=== PATIENT | female | born 1940 | race Caucasian/White ===

== ENCOUNTER → 2016-07-12 | Outpatient (CLI) | payer MEDICARE, OTHER ==
--- NOTE | 2016-07-12 11:20 | MM ---
Reason for exam: follow-up at short interval from prior study. Last mammogram was performed 7 months ago. History: Patient is postmenopausal and history of other cancer. Family history of breast cancer in paternal aunt. Benign MG stereo VAD BX RT of the right breast, January 03, 2016. Took estrogen for 3 years beginning at age 58. Physical Findings: Nurse did not find any significant physical abnormalities on exam. MG 3D Diag Mammo W/Cad RT CC and MLO view(s) were taken of the right breast. Prior study comparison: December 19, 2015, right breast MG 3d work up w/cad RT. December 01, 2015, bilateral MG 3d screening mammo w/cad. The breast tissue is heterogeneously dense. This may lower the sensitivity of mammography. There is chronic nodularity in the right breast. These results were verbally communicated with the patient and result sheet given to the patient on 07/12/16. ASSESSMENT: Benign, BI-RAD 2 RECOMMENDATION: Return to routine screening mammogram schedule for both breasts. Back on schedule for November 2016.
== END | disposition home or self-care (01) ==
LOC: RADMAMWWP 09:55
PROVIDERS: ATTEND Surgery
DX: R92.8 Other abnormal and inconclusive findings on diagnostic imaging of breast (principal)
CPT/HCPCS: G0206; G0279

== ENCOUNTER → 2017-08-14 | Outpatient (CLI) | payer MEDICARE, OTHER ==
--- NOTE | 2017-08-18 07:53 | MM ---
Reason for exam: screening (asymptomatic). Last mammogram was performed 1 year and 1 month ago. History: Patient is postmenopausal and history of other cancer. Family history of breast cancer in paternal aunt. Benign MG stereo VAD BX RT of the right breast, January 03, 2016. Took estrogen for 3 years beginning at age 58. Physical Findings: A clinical breast exam by your physician is recommended on an annual basis and results should be correlated with mammographic findings. MG 3D Screening Mammo W/Cad Bilateral CC, MLO, and XCCL view(s) were taken. Prior study comparison: July 12, 2016, right breast MG 3d diag mammo w/cad RT. December 19, 2015, right breast MG 3d work up w/cad RT. There are scattered fibroglandular densities. A new group of round calcifications lateral left breast are typically benign. Some new circumscribed less than 5mm nodularity in the left breast. ASSESSMENT: Probably benign, BI-RAD 3 RECOMMENDATION: Follow-up diagnostic mammogram of the left breast in 6 months.
== END | disposition home or self-care (01) ==
LOC: RADMAMWWP 09:37
PROVIDERS: ATTEND Family Medicine
DX: Z12.31 Encounter for screening mammogram for malignant neoplasm of breast (principal)
CPT/HCPCS: 77063; 77067

== ENCOUNTER → 2018-01-02 | Outpatient (CLI) | payer MEDICARE, OTHER ==
--- NOTE | 2018-01-02 11:44 | XR ---
EXAMINATION TYPE: XR knee complete RT DATE OF EXAM: 01/02/2018 CLINICAL HISTORY: pain TECHNIQUE: Three views of the right knee are obtained. COMPARISON: None. FINDINGS: There is no acute fracture/dislocation. The tri-compartment joint spaces appear moderatel y narrowed. Small suprapatellar joint effusion noted. The overlying soft tissue appears unremarkable. IMPRESSION: There is no acute fracture or dislocation.ICD 10 NO FRACTURE, INITIAL EVALUATION
== END | disposition home or self-care (01) ==
LOC: RADXRYALE 11:12
PROVIDERS: ATTEND Family Medicine
DX: M25.561 Pain in right knee (principal)

== ENCOUNTER 2018-03-23 16:42 | Inpatient (IN) | payer MEDICARE, OTHER ==
[2018-03-23] MEDS ORDERED: SODIUM CHLORIDE 0.9% 1,000 ML IV STA ×2 (17:13)
[2018-03-23] MEDS ORDERED: IBUPROFEN 800 MG TAB PO STA (17:52)
[2018-03-23] MEDS ORDERED: ACETAMINOPHEN TAB 500 MG TAB PO STA (17:52)
[2018-03-23 17:58] LABS: Basophils # (A) 0.1 k/uL (0-0.2); Basophils % (A) 1 %; Eosinophils % (A) 0 %; HCT 39.7 % (34.0-46.0); HGB 13.6 gm/dL (11.4-16.0); Lymphocytes # (A) 0.9 k/uL (1.0-4.8); Lymphocytes % (A) 8 %; MCH 31.3 pg (25.0-35.0); MCHC 34.2 g/dL (31.0-37.0); MCV 91.3 fL (80.0-100.0); Mean Platelet Volume 7.8; Monocytes # (A) 0.6 k/uL (0-1.0); Monocytes % (A) 6 %; Neutrophils # (A) 8.9 k/uL (1.3-7.7); Neutrophils % (A) 84 %; Platelet Count 197 k/uL (150-450); RBC 4.34 m/uL (3.80-5.40); WBC 10.6 k/uL (3.8-10.6)
[2018-03-23 18:04] LABS: Albumin 4.1 g/dL (3.5-5.0); Magnesium 2.1 mg/dL (1.6-2.3); Phosphorus 3.2 mg/dL (2.5-4.5); Total Bilirubin 1.2 mg/dL (0.2-1.3); Total Protein 7.5 g/dL (6.3-8.2)
[2018-03-23 18:11] LABS: Creatine Kinase 41 U/L (30-135)
[2018-03-23 18:16] LABS: INR 1.1 (<1.2); Prothrombin Time 10.6 sec (9.0-12.0)
[2018-03-23 18:23] LABS: Creatine Kinase MB <0.2 ng/mL (0.0-2.4)
--- NOTE | 2018-03-23 18:25 | ED ---
Weakness HPI - General Chief complaint: Weakness Stated complaint: weakness Time Seen by Provider: 03/23/18 17:08 Source: patient, RN notes reviewed, old records reviewed Mode of arrival: ambulatory Limitations: no limitations - History of Present Illness Initial comments: This is a 77-year-old female the ER for evaluation. Patient's brought in by her daughter states patient was unable to ambulate normally takes care of herself is able to do all activities of daily living. Patient family and therefore, we are coming to the ER today because again they came home and patient had significant decreased activity level, cough and he did notice some significant weakness otherwise department with cough and they think she may have a fever. Patient herself denies any significant complaints although she does complain of weakness - Related Data Home Medications Medication Instructions Recorded Confirmed Cholecalciferol [Vitamin D3] 2,000 unit PO DAILY 08/29/14 03/23/18 Furosemide 20 mg PO DAILY 08/29/14 03/23/18 Losartan/Hydrochlorothiazide 1 tab PO DAILY 08/29/14 03/23/18 [Losartan-Hctz 100-25 mg Tab] Montelukast [Singulair] 10 mg PO DAILY 08/29/14 03/23/18 Nitroglycerin Sl Tabs [Nitrostat] 0.4 mg PO Q5M PRN 08/29/14 03/23/18 [place]-3 Fatty Acids/Fish Oil [Fish 1 tab PO DAILY 08/29/14 03/23/18 Oil 1,000 mg Softgel] Primidone [Mysoline] 50 mg PO DAILY 08/29/14 03/23/18 Sertraline [Zoloft] 100 mg PO DAILY 08/29/14 03/23/18 Simvastatin 10 mg PO DAILY 08/29/14 03/23/18 Tiotropium 18 Mcg/Puff [Spiriva] 1 cap INHALATION RT-DAILY 08/29/14 03/23/18 Albuterol Inhaler [Ventolin Hfa 2 puff INHALATION RT-Q4H PRN 03/23/18 03/23/18 Inhaler] Ascorbic Acid [Vitamin C] 1,000 mg PO DAILY 03/23/18 03/23/18 Carboxymethylcellulose Sodium 1 drop BOTH EYES DAILY 03/23/18 03/23/18 [Refresh Tears] Cranberry Fruit Extract [Cranberry] 500 mg PO DAILY 03/23/18 03/23/18 Fluticasone/Salmeterol [Advair 1 puff INHALATION RT-BID 03/23/18 03/23/18 250-50 Diskus] Ipratropium-Albuterol Nebulize 3 ml INHALATION RT-QID PRN 03/23/18 03/23/18 [Duoneb 0.5 mg-3 mg/3 ml Soln] Levothyroxine Sodium [Synthroid] 100 mcg PO DAILY 03/23/18 03/23/18 Potassium Chloride Er 10 Meq 10 meq PO DAILY 03/23/18 03/23/18 Capsule Allergies Allergy/AdvReac Type Severity Reaction Status Date / Time amoxicillin trihydrate Allergy Abdominal Verified 03/23/18 19:41 [From Augmentin] Pain iodine Allergy Dyspnea Verified 03/23/18 19:41 potassium clavulanate Allergy Abdominal Verified 03/23/18 19:41 [From Augmentin] Pain Review of Systems ROS Statement: Those systems with pertinent positive or pertinent negative responses have been documented in the HPI. ROS Other: All systems not noted in ROS Statement are negative. Past Medical History Past Medical History: Chest Pain / Angina, Hypertension, Osteoarthritis (OA) History of Any Multi-Drug Resistant Organisms: None Reported Past Surgical History: Cholecystectomy, Heart Catheterization, Hysterectomy, Tonsillectomy Additional Past Surgical History / Comment(s): MENNINGITIS -WHEN 10 YEARS OLD Past Psychological History: Depression Smoking Status: Never smoker Past Alcohol Use History: None Reported Past Drug Use History: None Reported General Exam Limitations: no limitations, altered mental status General appearance: alert, in no apparent distress, lethargic Head exam: Present: atraumatic, normocephalic, normal inspection Eye exam: Present: normal appearance, PERRL, EOMI. Absent: scleral icterus, conjunctival injection, periorbital swelling ENT exam: Present: normal exam, mucous membranes moist Neck exam: Present: normal inspection. Absent: tenderness, meningismus, lymphadenopathy Respiratory exam: Present: rhonchi, decreased breath sounds. Absent: respiratory distress, wheezes, rales, stridor Cardiovascular Exam: Present: regular rate, normal rhythm, normal heart sounds. Absent: systolic murmur, diastolic murmur, rubs, gallop, clicks GI/Abdominal exam: Present: soft, normal bowel sounds. Absent: distended, tenderness, guarding, rebound, rigid Extremities exam: Present: normal inspection, full ROM, normal capillary refill. Absent: tenderness, pedal edema, joint swelling, calf tenderness Back exam: Present: normal inspection Neurological exam: Present: alert, oriented X3, CN II-XII intact Psychiatric exam: Present: normal affect, normal mood Skin exam: Present: warm, dry, intact, normal color. Absent: rash Course Vital Signs 03/23/18 03/23/18 03/23/18 16:58 17:37 19:39 Temperature 98.8 F 101.9 F H 98.9 F Pulse Rate 82 72 Respiratory 18 18 Rate Blood Pressure 118/73 112/57 O2 Sat by Pulse 95 94 L Oximetry 03/23/18 21:00 Temperature 98.1 F Pulse Rate 69 Respiratory 16 Rate Blood Pressure 118/62 O2 Sat by Pulse 93 L Oximetry - Reevaluation(s) Reevaluation #1: Medical record is reviewed Patient is in no significant distress EKG Findings - EKG Comments: EKG Findings:: EKG shows NSR rate of 84, W[place] 150, QRS 76, QTc 399 Medical Decision Making - Medical Decision Making 77 female the ER for evaluation of fever pneumonia and weakness. Patient placed on IV antibiotics will be admitted to the hospital - Lab Data Result diagrams: 03/25/18 08:57 03/25/18 21:28 Lab Results 03/23/18 03/23/18 03/23/18 Range/Units 00:15 17:40 17:40 WBC 10.6 (3.8-10.6) k/uL RBC 4.34 (3.80-5.40) m/uL Hgb 13.6 (11.4-16.0) gm/dL Hct 39.7 (34.0-46.0) % MCV 91.3 (80.0-100.0) fL MCH 31.3 (25.0-35.0) pg MCHC 34.2 (31.0-37.0) g/dL RDW 13.0 (11.5-15.5) % Plt Count 197 (150-450) k/uL Neutrophils % 84 % Lymphocytes % 8 % Monocytes % 6 % Eosinophils % 0 % Basophils % 1 % Neutrophils # 8.9 H (1.3-7.7) k/uL Lymphocytes # 0.9 L (1.0-4.8) k/uL Monocytes # 0.6 (0-1.0) k/uL Eosinophils # 0.0 (0-0.7) k/uL Basophils # 0.1 (0-0.2) k/uL PT (9.0-12.0) sec INR (<1.2) APTT (22.0-30.0) sec Sodium (137-145) mmol/L Potassium (3.5-5.1) mmol/L Chloride (98-107) mmol/L Carbon Dioxide (22-30) mmol/L Anion Gap mmol/L BUN (7-17) mg/dL Creatinine (0.52-1.04) mg/dL Est GFR (CKD-EPI)AfAm (>60 ml/min/1.73 sqM) Est GFR (CKD-EPI)NonAf (>60 ml/min/1.73 sqM) Glucose (74-99) mg/dL Plasma Lactic Acid Bryon (0.7-2.0) mmol/L Calcium (8.4-10.2) mg/dL Phosphorus (2.5-4.5) mg/dL Magnesium (1.6-2.3) mg/dL Total Bilirubin (0.2-1.3) mg/dL AST (14-36) U/L ALT (9-52) U/L Alkaline Phosphatase (38-126) U/L Total Creatine Kinase 41 (30-135) U/L CK-MB (CK-2) <0.2 (0.0-2.4) ng/mL CK-MB (CK-2) Rel Index Troponin I <0.012 0.210 H* (0.000-0.034) ng/mL Total Protein (6.3-8.2) g/dL Albumin (3.5-5.0) g/dL TSH (0.465-4.680) mIU/L Urine Color Urine Appearance (Clear) Urine pH (5.0-8.0) Ur Specific [place] (1.001-1.035) Urine Protein (Negative) Urine Glucose (UA) (Negative) Urine Ketones (Negative) Urine Blood (Negative) Urine Nitrite (Negative) Urine Bilirubin (Negative) Urine Urobilinogen (<2.0) mg/dL Ur Leukocyte Esterase (Negative) Urine RBC (0-5) /hpf Urine WBC (0-5) /hpf Urine WBC Clumps (None) /hpf Ur Squamous Epith Cells (0-4) /hpf Urine Bacteria (None) /hpf Hyaline Casts (0-2) /lpf Urine Mucus (None) /hpf Influenza Type A RNA (Not Detectd) Influenza Type B (PCR) (Not Detectd) 03/23/18 03/23/18 03/23/18 Range/Units 17:40 17:40 17:40 WBC (3.8-10.6) k/uL RBC (3.80-5.40) m/uL Hgb (11.4-16.0) gm/dL Hct (34.0-46.0) % MCV (80.0-100.0) fL MCH (25.0-35.0) pg MCHC (31.0-37.0) g/dL RDW (11.5-15.5) % Plt Count (150-450) k/uL Neutrophils % % Lymphocytes % % Monocytes % % Eosinophils % % Basophils % % Neutrophils # (1.3-7.7) k/uL Lymphocytes # (1.0-4.8) k/uL Monocytes # (0-1.0) k/uL Eosinophils # (0-0.7) k/uL Basophils # (0-0.2) k/uL PT 10.6 (9.0-12.0) sec INR 1.1 (<1.2) APTT 19.7 L (22.0-30.0) sec Sodium 138 (137-145) mmol/L Potassium 3.0 L (3.5-5.1) mmol/L Chloride 100 (98-107) mmol/L Carbon Dioxide 29 (22-30) mmol/L Anion Gap 9 mmol/L BUN 29 H (7-17) mg/dL Creatinine 1.15 H (0.52-1.04) mg/dL Est GFR (CKD-EPI)AfAm 53 (>60 ml/min/1.73 sqM) Est GFR (CKD-EPI)NonAf 46 (>60 ml/min/1.73 sqM) Glucose 119 H (74-99) mg/dL Plasma Lactic Acid Bryon 0.8 (0.7-2.0) mmol/L Calcium 9.0 (8.4-10.2) mg/dL Phosphorus 3.2 (2.5-4.5) mg/dL Magnesium 2.1 (1.6-2.3) mg/dL Total Bilirubin 1.2 (0.2-1.3) mg/dL AST 22 (14-36) U/L ALT 20 (9-52) U/L Alkaline Phosphatase 64 (38-126) U/L Total Creatine Kinase (30-135) U/L CK-MB (CK-2) (0.0-2.4) ng/mL CK-MB (CK-2) Rel Index Troponin I (0.000-0.034) ng/mL Total Protein 7.5 (6.3-8.2) g/dL Albumin 4.1 (3.5-5.0) g/dL TSH 0.564 (0.465-4.680) mIU/L Urine Color Urine Appearance (Clear) Urine pH (5.0-8.0) Ur Specific [place] (1.001-1.035) Urine Protein (Negative) Urine Glucose (UA) (Negative) Urine Ketones (Negative) Urine Blood (Negative) Urine Nitrite (Negative) Urine Bilirubin (Negative) Urine Urobilinogen (<2.0) mg/dL Ur Leukocyte Esterase (Negative) Urine RBC (0-5) /hpf Urine WBC (0-5) /hpf Urine WBC Clumps (None) /hpf Ur Squamous Epith Cells (0-4) /hpf Urine Bacteria (None) /hpf Hyaline Casts (0-2) /lpf Urine Mucus (None) /hpf Influenza Type A RNA (Not Detectd) Influenza Type B (PCR) (Not Detectd) 03/23/18 03/23/18 Range/Units 17:58 19:30 WBC (3.8-10.6) k/uL RBC (3.80-5.40) m/uL Hgb (11.4-16.0) gm/dL Hct (34.0-46.0) % MCV (80.0-100.0) fL MCH (25.0-35.0) pg MCHC (31.0-37.0) g/dL RDW (11.5-15.5) % Plt Count (150-450) k/uL Neutrophils % % Lymphocytes % % Monocytes % % Eosinophils % % Basophils % % Neutrophils # (1.3-7.7) k/uL Lymphocytes # (1.0-4.8) k/uL Monocytes # (0-1.0) k/uL Eosinophils # (0-0.7) k/uL Basophils # (0-0.2) k/uL PT (9.0-12.0) sec INR (<1.2) APTT (22.0-30.0) sec Sodium (137-145) mmol/L Potassium (3.5-5.1) mmol/L Chloride (98-107) mmol/L Carbon Dioxide (22-30) mmol/L Anion Gap mmol/L BUN (7-17) mg/dL Creatinine (0.52-1.04) mg/dL Est GFR (CKD-EPI)AfAm (>60 ml/min/1.73 sqM) Est GFR (CKD-EPI)NonAf (>60 ml/min/1.73 sqM) Glucose (74-99) mg/dL Plasma Lactic Acid [place] (0.7-2.0) mmol/L Calcium (8.4-10.2) mg/dL Phosphorus (2.5-4.5) mg/dL Magnesium (1.6-2.3) mg/dL Total Bilirubin (0.2-1.3) mg/dL AST (14-36) U/L ALT (9-52) U/L Alkaline Phosphatase (38-126) U/L Total Creatine Kinase (30-135) U/L CK-MB (CK-2) (0.0-2.4) ng/mL CK-MB (CK-2) Rel Index Troponin I (0.000-0.034) ng/mL Total Protein (6.3-8.2) g/dL Albumin (3.5-5.0) g/dL TSH (0.465-4.680) mIU/L Urine Color Yellow Urine Appearance Cloudy H (Clear) Urine pH 5.5 (5.0-8.0) Ur Specific [place] 1.013 (1.001-1.035) Urine Protein Trace H (Negative) Urine Glucose (UA) Negative (Negative) Urine Ketones Negative (Negative) Urine Blood Negative (Negative) Urine Nitrite Positive H (Negative) Urine Bilirubin Negative (Negative) Urine Urobilinogen <2.0 (<2.0) mg/dL Ur Leukocyte Esterase Large H (Negative) Urine RBC 5 (0-5) /hpf Urine WBC 50 H (0-5) /hpf Urine WBC Clumps Few H (None) /hpf Ur Squamous Epith Cells 1 (0-4) /hpf Urine Bacteria Occasional H (None) /hpf Hyaline Casts 3 H (0-2) /lpf Urine Mucus Occasional H (None) /hpf Influenza Type A RNA Not Detected (Not Detectd) Influenza Type B (PCR) Not Detected (Not Detectd) - Radiology Data Radiology results: report reviewed (CT brain negative chest x-ray positive for pneumonia), image reviewed Disposition Clinical Impression: Fever, UTI (urinary tract infection), Pneumonia Disposition: ADMITTED IP TO THIS HOSP Condition: Fair Is patient prescribed a controlled substance at d/c from ED?: No
[2018-03-23 18:26] LABS: Partial Thromboplastin Time 19.7 sec (22.0-30.0)
--- NOTE | 2018-03-23 18:40 | XR ---
EXAMINATION TYPE: XR chest 2V DATE OF EXAM: 03/23/2018 COMPARISON: Prior chest 03/07/2009 HISTORY: Weakness and cough, hypertension TECHNIQUE: Frontal and lateral views of the chest are obtained. FINDINGS: There is no focal air space opacity, pleural effusion, or pneumothorax seen. Strand-like d ensities are present within the lung which may represent atelectasis or scar The cardiac silhouette s ize is stable, patient is rotated which makes accentuate the appearance, there are overlying cardiac leads. The osseous structures are intact. Aorta is dense. IMPRESSION: No acute cardiopulmonary process.
--- NOTE | 2018-03-23 18:55 | CT ---
EXAMINATION TYPE: CT brain wo con DATE OF EXAM: 03/23/2018 COMPARISON: Prior CT brain 08/29/2014 HISTORY: Weakness. CT DLP: 1244.4 mGycm Automated exposure control for dose reduction was used. FINDINGS: There is no interval change. No evident hemorrhage or hydrocephalus. Cerebral vascular calcifications are present. Calvarium is intact. Paranasal sinuses and mastoid air cells as visualized are unchange d, question postop change on the left at the mastoids. IMPRESSION: NO ACUTE ABNORMALITY.
[2018-03-23 19:50] LABS: Appearance,Urine Cloudy (Clear); Bacteria,Urine Occasional /hpf; Bilirubin,Urine Negative (Negative); Blood,Urine Negative (Negative); Color,Urine Yellow; Glucose,Urine (UA) Negative (Negative); Hyaline Casts,Urine 3 /lpf (0-2); Ketones,Urine Negative (Negative); Leukocyte Esterase,Urine Large (Negative); Mucus,Urine Occasional /hpf; Nitrite,Urine Positive (Negative); PH, Urine 5.5 (5.0-8.0); Protein,Urine Trace (Negative); RBC,Urine 5 /hpf (0-5); Specific Gravity,Urine 1.013 (1.001-1.035); Squamous Epithelial Cell,Urine 1 /hpf (0-4); Urobilinogen,Urine <2.0 mg/dL (<2.0); WBC,Urine 50 /hpf (0-5)
[2018-03-23] MEDS ORDERED: PNEUMONIA PROTOCOL UTILIZED 1 EACH MISC PO PRN (20:20)
[2018-03-23] MEDS ORDERED: LEVOFLOXACIN 750MG-D5W PMX 750 MG in DEXTROSE/WATER 1 150ML.BAG IVPB STA (20:20)
[2018-03-23] MEDS ORDERED: ACETAMINOPHEN TAB 325 MG TAB PO PRN (22:41)
[2018-03-24] MEDS: HEPARIN SODIUM,PORCINE 5,000 UNIT/ML 1 ML VIAL SQ SCH ×4 (00:53→23:16)
[2018-03-24] MEDS: SODIUM CHLORIDE 0.9% 1,000 ML IV SCH ×3 (00:53→17:29)
[2018-03-24 06:22] LABS: Basophils # (A) 0.1 k/uL (0-0.2); Basophils % (A) 1 %; Eosinophils # (A) 0.1 k/uL (0-0.7); Eosinophils % (A) 1 %; HCT 35.4 % (34.0-46.0); HGB 11.7 gm/dL (11.4-16.0); Lymphocytes # (A) 0.6 k/uL (1.0-4.8); Lymphocytes % (A) 9 %; MCH 30.6 pg (25.0-35.0); MCHC 33.2 g/dL (31.0-37.0); MCV 92.2 fL (80.0-100.0); Mean Platelet Volume 7.5; Monocytes # (A) 0.5 k/uL (0-1.0); Monocytes % (A) 7 %; Neutrophils # (A) 5.4 k/uL (1.3-7.7); Neutrophils % (A) 80 %; Platelet Count 161 k/uL (150-450); RBC 3.84 m/uL (3.80-5.40); RDW 12.9 % (11.5-15.5); WBC 6.7 k/uL (3.8-10.6)
[2018-03-24 06:37] LABS: Potassium 2.8 mmol/L (3.5-5.1)
[2018-03-24] MEDS: LEVOTHYROXINE 100 MCG TAB PO SCH (06:53)
[2018-03-24] MEDS: IPRATROPIUM-ALBUTEROL 3 ML NEB INHALATION SCH ×4 (07:17→20:02)
--- NOTE | 2018-03-24 08:29 | XR ---
EXAMINATION TYPE: XR chest 2V DATE OF EXAM: 03/24/2018 COMPARISON: 03/23/2018 TECHNIQUE: PA and lateral views submitted. HISTORY: Cough FINDINGS: Heart size is prominent and there is atherosclerotic change aorta. Arthropathy of the shoulders. Pleu ral-based thickening bilaterally. Curvature the spine with hypertrophic and degenerative changes. Cass gical clips in the upper abdomen. Perihilar interstitial changes are noted. No definite consolidative pneumonia. Linear of bilateral areas of consolidation most typical scar or atelectasis. Surgical cli ps in the abdomen. Arthropathy of the shoulders. IMPRESSION: 1. Stable cardiomegaly with possible COPD.
[2018-03-24] MEDS ORDERED: ENOXAPARIN 40 MG/0.4 ML SYRINGE SQ SCH (09:00)
[2018-03-24] MEDS ORDERED: PANTOPRAZOLE 40 MG/10 ML VIAL IVP SCH (09:00)
[2018-03-24] MEDS ORDERED: NITROGLYCERIN SL TABS 0.4 MG TAB SUBLINGUAL PRN (10:43)
[2018-03-24] MEDS ORDERED: ALBUTEROL NEBULIZED 2.5 MG/3 ML INHALATION PRN (10:43)
[2018-03-24] MEDS ORDERED: Potassium Replacement Protocol 1 EACH MISC MISCELLANE PRN (10:44)
--- NOTE | 2018-03-24 10:48 | P.CRDCN ---
History of Present Illness Consult date: 03/24/18 Requesting physician: Solo Meraz Reason for Consult (text): Abnormal troponin Chief complaint: Weakness difficulty walking History of present illness: This is a pleasant 77-year-old female with history of hypertension, hyperlipidemia, COPD, hypothyroidism, who was unsure exactly of why she was brought to the hospital but she does state that she was very weak and unable to walk out to her car. In general just not feeling well. She denies having any chest discomfort, she does state that she has mild episodes where she feels short of breath. In the emergency room a troponin level was drawn and for this reason a cardiology consultation was requested. Patient is admitted with a diagnosis of UTI and is currently on antibiotics for same. Influenza A and B were negative. Troponin 0.21, no subsequent troponins were ordered. TSH level 0.56. Sodium 137, potassium 3.0 on admission, 2.8 this morning. BUN 32, creatinine 1.2. White blood cell count 6.7, hemoglobin 11.7, platelet count 161. EKG on admission here showed a normal sinus rhythm with inferior Q waves, no acute changes noted. CAT scan of the brain did not reveal any acute abnormality. Blood pressure 134/60 with a heart rate in the 60s, temperature 97.9 she's 94% on room air. At the time of my examination she is sitting up in the chair at bedside, denies any shortness of breath, no palpitations, no chest discomfort. She is mildly confused but overall is alert and oriented times3. Past Medical History Past Medical History: Asthma, Chest Pain / Angina, COPD, Hypertension, Osteoarthritis (OA) History of Any Multi-Drug Resistant Organisms: None Reported Past Surgical History: Cholecystectomy, Heart Catheterization, Hysterectomy, Tonsillectomy Additional Past Surgical History / Comment(s): MENNINGITIS -WHEN 10 YEARS OLD Past Psychological History: Depression Smoking Status: Never smoker Past Alcohol Use History: None Reported Past Drug Use History: None Reported Medications and Allergies Home Medications Medication Instructions Recorded Confirmed Type Cholecalciferol [Vitamin D3] 2,000 unit PO DAILY 08/29/14 03/23/18 History Furosemide 20 mg PO DAILY 08/29/14 03/23/18 History Losartan/Hydrochlorothiazide 1 tab PO DAILY 08/29/14 03/23/18 History [Losartan-Hctz 100-25 mg Tab] Montelukast [Singulair] 10 mg PO DAILY 08/29/14 03/23/18 History Nitroglycerin Sl Tabs [Nitrostat] 0.4 mg PO Q5M PRN 08/29/14 03/23/18 History [place]-3 Fatty Acids/Fish Oil [Fish 1 tab PO DAILY 08/29/14 03/23/18 History Oil 1,000 mg Softgel] Primidone [Mysoline] 50 mg PO DAILY 08/29/14 03/23/18 History Sertraline [Zoloft] 100 mg PO DAILY 08/29/14 03/23/18 History Simvastatin 10 mg PO DAILY 08/29/14 03/23/18 History Tiotropium 18 Mcg/Puff [Spiriva] 1 cap INHALATION RT-DAILY 08/29/14 03/23/18 History Albuterol Inhaler [Ventolin Hfa 2 puff INHALATION RT-Q4H PRN 03/23/18 03/23/18 History Inhaler] Ascorbic Acid [Vitamin C] 1,000 mg PO DAILY 03/23/18 03/23/18 History Carboxymethylcellulose Sodium 1 drop BOTH EYES DAILY 03/23/18 03/23/18 History [Refresh Tears] Cranberry Fruit Extract [Cranberry] 500 mg PO DAILY 03/23/18 03/23/18 History Fluticasone/Salmeterol [Advair 1 puff INHALATION RT-BID 03/23/18 03/23/18 History 250-50 Diskus] Ipratropium-Albuterol Nebulize 3 ml INHALATION RT-QID PRN 03/23/18 03/23/18 History [Duoneb 0.5 mg-3 mg/3 ml Soln] Levothyroxine Sodium [Synthroid] 100 mcg PO DAILY 03/23/18 03/23/18 History Potassium Chloride Er 10 Meq 10 meq PO DAILY 03/23/18 03/23/18 History Capsule Allergies Allergy/AdvReac Type Severity Reaction Status Date / Time amoxicillin trihydrate Allergy Abdominal Verified 03/23/18 19:41 [From Augmentin] Pain iodine Allergy Dyspnea Verified 03/23/18 19:41 potassium clavulanate Allergy Abdominal Verified 03/23/18 19:41 [From Augmentin] Pain Physical Exam Vitals: Vital Signs Temp Pulse Pulse Resp BP BP Pulse Ox 03/24/18 08:00 97.9 F 68 16 134/60 03/24/18 07:29 67 03/24/18 07:17 66 03/24/18 04:11 97.5 F L 68 18 114/57 92 L 03/23/18 22:43 97.7 F 65 18 106/61 95 03/23/18 21:00 98.1 F 69 16 118/62 93 L 03/23/18 19:39 98.9 F 72 18 112/57 94 L 03/23/18 17:37 101.9 F H 03/23/18 16:58 98.8 F 82 18 118/73 95 Intake and Output 03/23/18 03/24/18 03/24/18 22:59 06:59 14:59 Intake Total 600 Balance 600 Intake: Intake, IV Titration 600 Amount Sodium Chloride 0.9% 1, 600 000 ml @ 100 mls/hr IV . Q10H [facility] Rx#:[id number] Other: # Voids 1 2 Weight 93.712 kg 92.6 kg PHYSICAL EXAMINATION: GENERAL: 77-year-old female in no acute distress at the time of my examination HEENT: Head is atraumatic, normocephalic. Pupils equal, round. Sclera anicteric. Conjunctiva are clear. Mucous membranes of the mouth are moist. Neck is supple. There is no elevated jugular venous pressure. No carotid bruit is heard. HEART EXAMINATION: Heart S1 and S2 with soft systolic murmur is heard. CHEST EXAMINATION: Lungs are clear to auscultation and precussion. No chest wall tenderness is noted on palpation or with deep breathing. ABDOMEN: Soft, nontender. Bowel sounds are heard. No organomegaly noted. EXTREMITIES: 2+ peripheral pulses with no evidence of peripheral edema and no calf tenderness noted. NEUROLOGIC patient is awake, alert and oriented X3. . Results 03/24/18 05:41 03/24/18 05:41 Cardiac Enzymes 03/23/18 03/23/18 03/23/18 Range/Units 00:15 17:40 17:40 AST 22 (14-36) U/L CK-MB (CK-2) <0.2 (0.0-2.4) ng/mL Troponin I <0.012 0.210 H* (0.000-0.034) ng/mL Coagulation 03/23/18 Range/Units 17:40 PT 10.6 (9.0-12.0) sec APTT 19.7 L (22.0-30.0) sec CBC 03/23/18 03/24/18 Range/Units 17:40 05:41 WBC 10.6 6.7 (3.8-10.6) k/uL RBC 4.34 3.84 (3.80-5.40) m/uL Hgb 13.6 11.7 (11.4-16.0) gm/dL Hct 39.7 35.4 (34.0-46.0) % Plt Count 197 161 (150-450) k/uL Comprehensive Metabolic Panel 03/23/18 03/24/18 Range/Units 17:40 05:41 Sodium 138 137 (137-145) mmol/L Potassium 3.0 L 2.8 L (3.5-5.1) mmol/L Chloride 100 104 (98-107) mmol/L Carbon Dioxide 29 25 (22-30) mmol/L BUN 29 H 32 H (7-17) mg/dL Creatinine 1.15 H 1.23 H (0.52-1.04) mg/dL Glucose 119 H 96 (74-99) mg/dL Calcium 9.0 8.0 L (8.4-10.2) mg/dL AST 22 (14-36) U/L ALT 20 (9-52) U/L Alkaline Phosphatase 64 (38-126) U/L Total Protein 7.5 (6.3-8.2) g/dL Albumin 4.1 (3.5-5.0) g/dL Current Medications Generic Name Dose Route Start Last Admin Trade Name Freq PRN Reason Stop Dose Admin Acetaminophen 650 mg 03/23/18 22:41 Tylenol Tab PO Q6HR PRN Fever and/ or Pain Albuterol/Ipratropium 3 ml 03/24/18 08:00 03/24/18 07:17 Duoneb 0.5 Mg-3 Mg/3 Ml Soln INHALATION 3 ml RT-QID YAZMIN Administration Heparin Sodium (Porcine) 5,000 unit 03/24/18 00:45 03/24/18 09:13 Heparin SQ 5,000 unit Q8HR YAZMIN Administration Levofloxacin 750 mg/ IV 150 mls @ 100 mls/hr 03/24/18 21:00 Solution IVPB 04/03/18 21:01 Q24H YAZMIN Sodium Chloride 1,000 mls @ 100 mls/hr 03/23/18 20:30 03/24/18 09:13 Saline 0.9% IV 100 mls/hr .Q10H YAZMIN Administration Levothyroxine Sodium 100 mcg 03/24/18 06:30 03/24/18 06:53 Synthroid PO 100 mcg DAILY@0630 YAZMIN Administration Miscellaneous Information 1 each 03/23/18 20:20 Pneumonia Protocol Utilized PO ONCE PRN Per Protocol Pantoprazole Sodium 40 mg 03/24/18 09:00 03/24/18 09:13 Protonix IVP 40 mg DAILY YAZMIN Administration Intake and Output 03/23/18 03/24/18 03/24/18 22:59 06:59 14:59 Intake Total 600 Balance 600 Intake: Intake, IV Titration 600 Amount Sodium Chloride 0.9% 1, 600 000 ml @ 100 mls/hr IV . Q10H YAZMIN Rx#:[id number] Other: # Voids 1 2 Weight 93.712 kg 92.6 kg 03/24/18 05:41 03/24/18 05:41 EKG Interpretations (text) EKG shows normal sinus rhythm with inferior Q waves. Assessment and Plan Plan: Assessment and plan #1 symptoms of weakness primarily, likely secondary to UTI #2 abnormal troponin, patient denies having any chest discomfort, EKG shows normal sinus rhythm with no acute changes. Likely secondary to sepsis #3 asthma and COPD #4 osteoarthritis #5 hypertension #6 hyperlipidemia #7 hypokalemia Plan We will request an echocardiogram with Doppler study be performed. Replace patient's potassium. 2 subsequent troponins were be ordered, troponin abnormality likely secondary to UTI. We'll continue the patient's current medications. Initiate a baby aspirin. Further recommendations to follow. DNP note has been reviewed, I agree with a documented findings and plan of care. Patient was seen and examined.
[2018-03-24] MEDS: POTASSIUM CHLORIDE ER 20 MEQ TAB.ER PO SCH ×3 (12:29→17:25)
[2018-03-24] MEDS: ASPIRIN 81 MG PO SCH (12:29)
--- NOTE | 2018-03-24 12:46 | P.HPIM ---
History of Present Illness 77-year-old pleasant female came in with complaints of generalized weakness unable to walk of 1 day duration patient has a benign essential tremor for which patient is being evaluated by neurology as an outpatient. Patient does have family history for that patient had influenza A and B- does have fever does have leukocytosis, which improved now chest x-ray did not show any pneumonic process patient denied any cough patient denied any dysuria suprapubic pain but he urine is significantly abnormal for which patient was started on levofloxacin which will be switched to Rocephin. Patient was documented to have ALLERGIC to amoxicillin which is abdominal pain which is not a real ALLERGY. A she is afebrile today. Patient has elevated creatinine of 1.23 her normal creatinine appears to be normal. Patient also has mildly elevated troponin of 0.2010 because of which a cardiology was consulted appears to be noncardiac elevation secondary to sepsis. 4 EKG findings refer to the documentation. Patient is hypokalemic potassium will be supplemented patient doesn't have any history of heart failure is on Lasix at home. Which will be held and patient will be on IV fluids. Review of Systems REVIEW OF SYSTEMS: CONSTITUTIONAL: As mentioned in HPI HEENT: No recent visual problems or hearing problems. Denied any sore throat. CARDIOVASCULAR: No chest pain, orthopnea, PND, no palpitations, no syncope. PULMONARY: No shortness of breath, no cough, no hemoptysis. GASTROINTESTINAL: No diarrhea, no nausea, no vomiting, no abdominal pain. Normoactive bowel sounds. NEUROLOGICAL: No headaches, no weakness, no numbness. HEMATOLOGICAL: Denies any bleeding or petechiae. GENITOURINARY: Denies any burning micturition, frequency, or urgency. MUSCULOSKELETAL/RHEUMATOLOGICAL: Denies any joint pain, swelling, or any muscle pain. ENDOCRINE: Denies any polyuria or polydipsia. The rest of the 14-point review of systems is negative. Past Medical History Past Medical History: Asthma, Chest Pain / Angina, COPD, Hypertension, Osteoarthritis (OA) History of Any Multi-Drug Resistant Organisms: None Reported Past Surgical History: Cholecystectomy, Heart Catheterization, Hysterectomy, Tonsillectomy Additional Past Surgical History / Comment(s): MENNINGITIS -WHEN 10 YEARS OLD Past Psychological History: Depression Smoking Status: Never smoker Past Alcohol Use History: None Reported Past Drug Use History: None Reported Medications and Allergies Home Medications Medication Instructions Recorded Confirmed Type Cholecalciferol [Vitamin D3] 2,000 unit PO DAILY 08/29/14 03/23/18 History Furosemide 20 mg PO DAILY 08/29/14 03/23/18 History Losartan/Hydrochlorothiazide 1 tab PO DAILY 08/29/14 03/23/18 History [Losartan-Hctz 100-25 mg Tab] Montelukast [Singulair] 10 mg PO DAILY 08/29/14 03/23/18 History Nitroglycerin Sl Tabs [Nitrostat] 0.4 mg PO Q5M PRN 08/29/14 03/23/18 History [place]-3 Fatty Acids/Fish Oil [Fish 1 tab PO DAILY 08/29/14 03/23/18 History Oil 1,000 mg Softgel] Primidone [Mysoline] 50 mg PO DAILY 08/29/14 03/23/18 History Sertraline [Zoloft] 100 mg PO DAILY 08/29/14 03/23/18 History Simvastatin 10 mg PO DAILY 08/29/14 03/23/18 History Tiotropium 18 Mcg/Puff [Spiriva] 1 cap INHALATION RT-DAILY 08/29/14 03/23/18 History Albuterol Inhaler [Ventolin Hfa 2 puff INHALATION RT-Q4H PRN 03/23/18 03/23/18 History Inhaler] Ascorbic Acid [Vitamin C] 1,000 mg PO DAILY 03/23/18 03/23/18 History Carboxymethylcellulose Sodium 1 drop BOTH EYES DAILY 03/23/18 03/23/18 History [Refresh Tears] Cranberry Fruit Extract [Cranberry] 500 mg PO DAILY 03/23/18 03/23/18 History Fluticasone/Salmeterol [Advair 1 puff INHALATION RT-BID 03/23/18 03/23/18 History 250-50 Diskus] Ipratropium-Albuterol Nebulize 3 ml INHALATION RT-QID PRN 03/23/18 03/23/18 History [Duoneb 0.5 mg-3 mg/3 ml Soln] Levothyroxine Sodium [Synthroid] 100 mcg PO DAILY 03/23/18 03/23/18 History Potassium Chloride Er 10 Meq 10 meq PO DAILY 03/23/18 03/23/18 History Capsule Allergies Allergy/AdvReac Type Severity Reaction Status Date / Time amoxicillin trihydrate Allergy Abdominal Verified 03/23/18 19:41 [From Augmentin] Pain iodine Allergy Dyspnea Verified 03/23/18 19:41 potassium clavulanate Allergy Abdominal Verified 03/23/18 19:41 [From Augmentin] Pain Physical Exam Vitals: Vital Signs Temp Pulse Pulse Resp BP BP Pulse Ox 03/24/18 11:36 70 03/24/18 11:24 68 03/24/18 08:00 97.9 F 68 16 134/60 03/24/18 07:29 67 03/24/18 07:17 66 03/24/18 04:11 97.5 F L 68 18 114/57 92 L 03/23/18 22:43 97.7 F 65 18 106/61 95 03/23/18 21:00 98.1 F 69 16 118/62 93 L 03/23/18 19:39 98.9 F 72 18 112/57 94 L 03/23/18 17:37 101.9 F H 03/23/18 16:58 98.8 F 82 18 118/73 95 Intake and Output 03/23/18 03/24/18 03/24/18 22:59 06:59 14:59 Intake Total 600 Balance 600 Intake: Intake, IV Titration 600 Amount Sodium Chloride 0.9% 1, 600 000 ml @ 100 mls/hr IV . Q10H [facility] Rx#:[id number] Other: # Voids 1 2 Weight 93.712 kg 92.6 kg PHYSICAL EXAMINATION: GENERAL: The patient is alert and oriented x3, not in any acute distress. Well developed, well nourished. Benign essential tremor HEENT: Pupils are round and equally reacting to light. EOMI. No scleral icterus. No conjunctival pallor. Normocephalic, atraumatic. No pharyngeal erythema. No thyromegaly. CARDIOVASCULAR: S1 and S2 present. No murmurs, rubs, or gallops. PULMONARY: Chest is clear to auscultation, no wheezing or crackles. ABDOMEN: Soft, nontender, nondistended, normoactive bowel sounds. No palpable organomegaly. MUSCULOSKELETAL: No joint swelling or deformity. EXTREMITIES: No cyanosis, clubbing, or pedal edema. NEUROLOGICAL: Gross neurological examination did not reveal any focal deficits. SKIN: No rashes. Results CBC & Chem 7: 03/24/18 05:41 03/24/18 05:41 Labs: Abnormal Lab Results - Last 24 Hours (Table) 03/23/18 03/23/18 03/23/18 Range/Units 17:40 17:40 17:40 Neutrophils # 8.9 H (1.3-7.7) k/uL Lymphocytes # 0.9 L (1.0-4.8) k/uL APTT (22.0-30.0) sec Potassium 3.0 L (3.5-5.1) mmol/L BUN 29 H (7-17) mg/dL Creatinine 1.15 H (0.52-1.04) mg/dL Glucose 119 H (74-99) mg/dL Plasma Lactic Acid Bryon (0.7-2.0) mmol/L Calcium (8.4-10.2) mg/dL Troponin I 0.210 H* (0.000-0.034) ng/mL Urine Appearance (Clear) Urine Protein (Negative) Urine Nitrite (Negative) Ur Leukocyte Esterase (Negative) Urine WBC (0-5) /hpf Urine WBC Clumps (None) /hpf Urine Bacteria (None) /hpf Hyaline Casts (0-2) /lpf Urine Mucus (None) /hpf 03/23/18 03/23/18 03/23/18 Range/Units 17:40 19:30 20:56 Neutrophils # (1.3-7.7) k/uL Lymphocytes # (1.0-4.8) k/uL APTT 19.7 L (22.0-30.0) sec Potassium (3.5-5.1) mmol/L BUN (7-17) mg/dL Creatinine (0.52-1.04) mg/dL Glucose (74-99) mg/dL Plasma Lactic Acid Bryon 0.6 L (0.7-2.0) mmol/L Calcium (8.4-10.2) mg/dL Troponin I (0.000-0.034) ng/mL Urine Appearance Cloudy H (Clear) Urine Protein Trace H (Negative) Urine Nitrite Positive H (Negative) Ur Leukocyte Esterase Large H (Negative) Urine WBC 50 H (0-5) /hpf Urine WBC Clumps Few H (None) /hpf Urine Bacteria Occasional H (None) /hpf Hyaline Casts 3 H (0-2) /lpf Urine Mucus Occasional H (None) /hpf 03/24/18 03/24/18 Range/Units 05:41 05:41 Neutrophils # (1.3-7.7) k/uL Lymphocytes # 0.6 L (1.0-4.8) k/uL APTT (22.0-30.0) sec Potassium 2.8 L (3.5-5.1) mmol/L BUN 32 H (7-17) mg/dL Creatinine 1.23 H (0.52-1.04) mg/dL Glucose (74-99) mg/dL Plasma Lactic Acid Bryon (0.7-2.0) mmol/L Calcium 8.0 L (8.4-10.2) mg/dL Troponin I (0.000-0.034) ng/mL Urine Appearance (Clear) Urine Protein (Negative) Urine Nitrite (Negative) Ur Leukocyte Esterase (Negative) Urine WBC (0-5) /hpf Urine WBC Clumps (None) /hpf Urine Bacteria (None) /hpf Hyaline Casts (0-2) /lpf Urine Mucus (None) /hpf Microbiology - Last 24 Hours (Table) 03/23/18 19:30 Urine Culture - Preliminary Urine,Voided Thrombosis Risk Factor Assmnt - Choose All That Apply Any of the Below Risk Factors Present?: Yes Each Factor Represents 1 point: Abnormal pulmonary function (COPD), Obesity ( BMI >25) Each Risk Factor Represents 3 Points: Age 75 years or older Other congenital or acquired thrombophilia - If yes, enter type in comment: No Thrombosis Risk Factor Assessment Total Risk Factor Score: 5 Thrombosis Risk Factor Assessment Level: High Risk Assessment and Plan Plan: Generalized weakness fatigue: Secondary to sepsis from a possible urinary tract infection and patient was switched to Rocephin awaiting urine cultures -Minimal elevated troponin secondary to sepsis no evidence of myocardial ischemia -Hypokalemia secondary to diuretic therapy which is being held patient is on IV fluids -Acute renal failure secondary to sepsis and renal azotemia from Lasix was of which are being held and patient will be on IV fluids. Repeat basic metabolic profile tomorrow Asthma and COPD: Patient is not in acute exacerbation -Hypertension
--- NOTE | 2018-03-24 12:51 | ECHOF ---
Referral Reason:abn trop MEASUREMENTS -------- HEIGHT: 152.4 cm WEIGHT: 92.5 kg BP: RVIDd: 3.3 cm (< 3.3) IVSd: 1.2 cm (0.6 - 1.1) LVIDd: 3.8 cm (3.9 - 5.3) LVPWd: 1.2 cm (0.6 - 1.1) IVSs: 1.2 cm LVIDs: 3.1 cm LVPWs: 1.2 cm Ao Diam: 2.7 cm (2.0 - 3.7) AV Cusp: 1.5 cm (1.5 - 2.6) LA Diam: 3.6 cm (2.7 - 3.8) MV EXCURSION: 12.104 mm (> 18.000) MV EF SLOPE: 45 mm/s (70 - 150) EPSS: 0.3 cm MV E Alex: 0.70 m/s MV DecT: 250 ms MV A Alex: 0.98 m/s MV E/A Ratio: 0.71 RAP: 5.00 mmHg RVSP: 12.57 mmHg FINDINGS -------- Sinus rhythm. This was a techncally difficult study with suboptimal views, , Lumason utilized for enhancement of im ages. The left ventricular size is normal. There is mild concentric left ventricular hypertrophy. Overa ll left ventricular systolic function is low-normal with, an EF between 50 - 55 %. The right ventricle is normal in size. The left atrial size is normal. The right atrial size is normal. 5.0mg OF Lumason UTLIZED: 2 OR MORE WALL SEGMENTS NOT VISUALIZED. There is mild aortic valve sclerosis. There is no evidence of aortic regurgitation. Mild mitral regurgitation is present. Mild tricuspid regurgitation present. There is no evidence of pulmonary hypertension. The right v entricular systolic pressure, as measured by Doppler, is 12.57mmHg. The pulmonic valve was not well visualized. The aortic root size is normal. There is no pericardial effusion. CONCLUSIONS -------- 1. This was a techncally difficult study with suboptimal views, , Lumason utilized for enhancement of images. 2. The left ventricular size is normal. 3. There is mild concentric left ventricular hypertrophy. 4. Overall left ventricular systolic function is low-normal with, an EF between 50 - 55 %. 5. The right ventricle is normal in size. 6. The left atrial size is normal. 7. The right atrial size is normal. 8. 5.0mg OF Lumason UTLIZED: 2 OR MORE WALL SEGMENTS NOT VISUALIZED. 9. There is mild aortic valve sclerosis. 10. Mild mitral regurgitation is present. 11. Mild tricuspid regurgitation present. 12. There is no evidence of pulmonary hypertension. 13. The right ventricular systolic pressure, as measured by Doppler, is 12.57mmHg. 14. The pulmonic valve was not well visualized. 15. The aortic root size is normal. 16. There is no pericardial effusion. WILD OYSTER HARVESTER: Shea Benjamin RDCS
[2018-03-24] MEDS ORDERED: VANCOMYCIN IV PER PHARMACY 1 EACH MISC MISCELLANE PRN (17:06)
[2018-03-24] MEDS: VANCOMYCIN 1,500 MG in SODIUM CHLORIDE 0.9% 250 ML IVPB SCH (19:26)
[2018-03-24] MEDS ORDERED: SERTRALINE 100 MG TAB PO ONE (19:54)
[2018-03-24] MEDS: SYMBICORT 80-4.5 MCG INHALER INHALATION SCH (20:03)
[2018-03-24] MEDS ORDERED: LEVOFLOXACIN 750MG-D5W PMX 750 MG in DEXTROSE/WATER 1 150ML.BAG IVPB SCH (21:00)
[2018-03-24] MEDS ORDERED: diphenhydrAMINE 25 MG CAP PO PRN (21:18)
[2018-03-24] MEDS ORDERED: diphenhydrAMINE 50 MG/ML 1 ML VIAL IVP PRN (21:18)
[2018-03-25] MEDS: SODIUM CHLORIDE 0.9% 1,000 ML IV SCH ×2 (04:51→13:08)
[2018-03-25] MEDS: LEVOTHYROXINE 100 MCG TAB PO SCH (06:25)
[2018-03-25] MEDS: IPRATROPIUM-ALBUTEROL 3 ML NEB INHALATION SCH ×4 (07:14→19:49)
[2018-03-25] MEDS: SYMBICORT 80-4.5 MCG INHALER INHALATION SCH ×2 (07:14→19:49)
[2018-03-25] MEDS ORDERED: NON-FORMULARY DRUG (Tiotropium 18 Mcg/Puff 1 CAP) INHALATION SCH (08:00)
[2018-03-25] MEDS: HEPARIN SODIUM,PORCINE 5,000 UNIT/ML 1 ML VIAL SQ SCH ×3 (08:03→23:54)
[2018-03-25] MEDS: PANTOPRAZOLE 40 MG TABLET PO SCH (08:03)
[2018-03-25] MEDS: ASPIRIN 81 MG PO SCH (08:03)
[2018-03-25] MEDS: PRIMIDONE 50 MG TAB PO SCH (08:03)
[2018-03-25] MEDS: SERTRALINE 100 MG TAB PO SCH (08:03)
[2018-03-25] MEDS: MONTELUKAST 10 MG TAB PO SCH (08:03)
[2018-03-25] MEDS: ATORVASTATIN 10 MG TAB PO SCH (08:04)
[2018-03-25 09:32] LABS: MCH 30.5 pg (25.0-35.0); MCHC 33.3 g/dL (31.0-37.0); MCV 91.6 fL (80.0-100.0); Mean Platelet Volume 7.5; Platelet Count 202 k/uL (150-450); RBC 3.93 m/uL (3.80-5.40); RDW 13.1 % (11.5-15.5); WBC 7.1 k/uL (3.8-10.6)
[2018-03-25] MEDS: ARTIFICIAL TEARS-HYPROMELLOSE DROPS 15 ML BTL BOTH EYES SCH (09:36)
[2018-03-25] MEDS: VANCOMYCIN 1,500 MG in SODIUM CHLORIDE 0.9% 250 ML IVPB SCH (09:37)
[2018-03-25 09:46] LABS: Calcium 8.5 mg/dL (8.4-10.2); Potassium 3.3 mmol/L (3.5-5.1)
[2018-03-25] MEDS: POTASSIUM CHLORIDE ER 20 MEQ TAB.ER PO SCH ×4 (10:19→19:08)
--- NOTE | 2018-03-25 13:15 | P.PN ---
Subjective Patient is admitted for possible urinary tract infection. Patient is on Rocephin urine cultures are showing gram-negative bacilli. Blood cultures were positive but it secondary contamination with crackle is negative staph vancomycin will be discontinued. He has minimally elevated troponin secondary to acute renal failure and sepsis secondary to urinary tract infection. Patient is clinically doing well, once we get the urine cultures and studies patient will be able to be discharged to home with home care subacute rehabilitation depending on physical therapy recommendations. Constitutional: Denied any fatigue denied any fever. Cardio vascular: denied any chest pain, palpitations Gastrointestinal denied any nausea vomiting Pulmonary: Denied any shortness of breath cough Neurologic denied any new focal deficits All inpatient medications were reviewed and appropriate changes in these medications as dictated in the interval history and assessment and plan. Objective - Vital Signs Vital signs: Vital Signs Temp 97.0 F L 03/25/18 07:00 Pulse 82 03/25/18 11:32 Resp 22 03/25/18 08:00 BP 113/50 03/25/18 07:00 Pulse Ox 96 03/25/18 07:00 Intake & Output 03/24/18 03/25/18 03/25/18 18:59 06:59 18:59 Intake Total 1262 Balance 1262 Intake: Intake, IV Titration 800 Amount Sodium Chloride 0.9% 1, 700 000 ml @ 100 mls/hr IV . Q10H [facility] Rx#:[id number] cefTRIAXone 1,000 mg In 100 Sodium Chloride 0.9% 50 ml @ 100 mls/hr IVPB Q24HR [facility] Rx#:[id number] Oral 462 Other: # Voids 4 3 - Exam PHYSICAL EXAMINATION: GENERAL: The patient is alert and oriented x3, not in any acute distress. Well developed, well nourished. HEENT: Pupils are round and equally reacting to light. EOMI. No scleral icterus. No conjunctival pallor. Normocephalic, atraumatic. No pharyngeal erythema. No thyromegaly. CARDIOVASCULAR: S1 and S2 present. No murmurs, rubs, or gallops. PULMONARY: Chest is clear to auscultation, no wheezing or crackles. ABDOMEN: Soft, nontender, nondistended, normoactive bowel sounds. No palpable organomegaly. MUSCULOSKELETAL: No joint swelling or deformity. EXTREMITIES: No cyanosis, clubbing, or pedal edema. NEUROLOGICAL: Gross neurological examination did not reveal any focal deficits. SKIN: No rashes. - Labs CBC & Chem 7: 03/25/18 08:57 03/25/18 08:57 Labs: Abnormal Lab Results - Last 24 Hours (Table) 03/25/18 Range/Units 08:57 Potassium 3.3 L (3.5-5.1) mmol/L Chloride 110 H (98-107) mmol/L BUN 23 H (7-17) mg/dL Glucose 119 H (74-99) mg/dL Microbiology - Last 24 Hours (Table) 03/23/18 17:42 Blood Culture Gram Stain - Preliminary Blood Blood Culture - Preliminary Coagulase Negative Staph 03/23/18 19:30 Urine Culture - Preliminary Urine,Voided Gram Neg Bacilli 03/23/18 17:42 Blood Culture - Final Blood Assessment and Plan Plan: Generalized weakness fatigue: Secondary to sepsis from a possible urinary tract infection and patient was switched to Rocephin awaiting urine cultures -Minimal elevated troponin secondary to sepsis no evidence of myocardial ischemia -Get gram-negative bacteremia with coagulase-negative staph which is a contamination vancomycin will be discontinued. -Hypokalemia secondary to diuretic therapy which is being held patient is on IV fluids, will supplement potassium -Acute renal failure secondary to sepsis and renal azotemia from Lasix improved with IV fluids IV fluids will be discontinued. Asthma and COPD: Patient is not in acute exacerbation -Hypertension -Benign essential tremor
[2018-03-25 14:49] VITALS: RESP 18
[2018-03-25] MEDS ORDERED: VANCOMYCIN 1,750 MG in SODIUM CHLORIDE 0.9% 500 ML 500 ML IVPB SCH (21:00)
[2018-03-26] MEDS: LEVOTHYROXINE 100 MCG TAB PO SCH (06:16)
[2018-03-26 06:37] VITALS: BP 127/67; TEMP 97.6
[2018-03-26] MEDS: SYMBICORT 80-4.5 MCG INHALER INHALATION SCH (07:32)
[2018-03-26] MEDS: IPRATROPIUM-ALBUTEROL 3 ML NEB INHALATION SCH ×3 (07:32→15:40)
[2018-03-26] MEDS: MONTELUKAST 10 MG TAB PO SCH (08:17)
[2018-03-26] MEDS: ARTIFICIAL TEARS-HYPROMELLOSE DROPS 15 ML BTL BOTH EYES SCH (08:17)
[2018-03-26] MEDS: PRIMIDONE 50 MG TAB PO SCH (08:17)
[2018-03-26] MEDS: HEPARIN SODIUM,PORCINE 5,000 UNIT/ML 1 ML VIAL SQ SCH (08:17)
[2018-03-26] MEDS: ASPIRIN 81 MG PO SCH (08:18)
[2018-03-26] MEDS: ATORVASTATIN 10 MG TAB PO SCH (08:18)
[2018-03-26] MEDS: SERTRALINE 100 MG TAB PO SCH (08:18)
[2018-03-26] MEDS: PANTOPRAZOLE 40 MG TABLET PO SCH (08:18)
[2018-03-26 11:48] LABS: Potassium 4.3 mmol/L (3.5-5.1)
[2018-03-26 12:02] VITALS: PULSE 82
--- NOTE | 2018-03-26 15:30 | P.DS ---
Providers Date of admission: 03/26/18 09:13 Attending physician: Solo Meraz Consults: 03/23/18 23:17 Consult Physician Stat Consulting Provider: Casey Child Consult Reason/Comments: positive trops Do you want consulting provider notified?: Yes Primary care physician: Brent Batista [facility] Course: Patient is admitted for possible urinary tract infection. Patient is on Rocephin urine cultures are showing gram-negative bacilli. Blood cultures were positive but it secondary contamination with crackle is negative staph vancomycin will be discontinued. He has minimally elevated troponin secondary to acute renal failure and sepsis secondary to urinary tract infection. Patient is clinically doing well, once we get the urine cultures and studies patient will be able to be discharged to home with home care subacute rehabilitation depending on physical therapy recommendations. 03/26/2018 Urine cultures are showing E. coli which are pansensitive patient will be discharged on Ceftin patient is otherwise clinically doing well. Patient will be discharged home with home care. PHYSICAL EXAMINATION: GENERAL: The patient is alert and oriented x3, not in any acute distress. Well developed, well nourished. HEENT: Pupils are round and equally reacting to light. EOMI. No scleral icterus. No conjunctival pallor. Normocephalic, atraumatic. No pharyngeal erythema. No thyromegaly. CARDIOVASCULAR: S1 and S2 present. No murmurs, rubs, or gallops. PULMONARY: Chest is clear to auscultation, no wheezing or crackles. ABDOMEN: Soft, nontender, nondistended, normoactive bowel sounds. No palpable organomegaly. MUSCULOSKELETAL: No joint swelling or deformity. EXTREMITIES: No cyanosis, clubbing, or pedal edema. NEUROLOGICAL: Gross neurological examination did not reveal any focal deficits. SKIN: No rashes. Assessment and Plan Plan: Generalized weakness fatigue: Secondary to sepsis from a urinary tract infection, patient has E. coli which is pansensitive -Minimal elevated troponin secondary to sepsis no evidence of myocardial ischemia -Get gram-negative bacteremia with coagulase-negative staph which is a contamination vancomycin will be discontinued. -Hypokalemia secondary to diuretic therapy , supplemental potassium -Acute renal failure secondary to sepsis and renal azotemia from Lasix improved with IV fluids Asthma and COPD: Patient is not in acute exacerbation -Hypertension -Benign essential tremor Patient Condition at Discharge: Fair Plan - Discharge Summary Discharge Rx Participant: Yes New Discharge Prescriptions: New Cefuroxime Axetil [Ceftin] 500 mg PO BID 3 Days #10 tab Continue Sertraline [Zoloft] 100 mg PO DAILY [place]-3 Fatty Acids/Fish Oil [Fish Oil 1,000 mg Softgel] 1 tab PO DAILY Cholecalciferol [Vitamin D3] 2,000 unit PO DAILY Simvastatin 10 mg PO DAILY Nitroglycerin Sl Tabs [Nitrostat] 0.4 mg PO Q5M PRN PRN Reason: Chest Pain Furosemide 20 mg PO DAILY Montelukast [Singulair] 10 mg PO DAILY Tiotropium 18 Mcg/Puff [Spiriva] 1 cap INHALATION RT-DAILY Primidone [Mysoline] 50 mg PO DAILY Cranberry Fruit Extract [Cranberry] 500 mg PO DAILY Carboxymethylcellulose Sodium [Refresh Tears] 1 drop BOTH EYES DAILY Potassium Chloride Er 10 Meq Capsule 10 meq PO DAILY Levothyroxine Sodium [Synthroid] 100 mcg PO DAILY Albuterol Inhaler [Ventolin Hfa Inhaler] 2 puff INHALATION RT-Q4H PRN PRN Reason: Shortness Of Breath Fluticasone/Salmeterol [Advair 250-50 Diskus] 1 puff INHALATION RT-BID Ascorbic Acid [Vitamin C] 1,000 mg PO DAILY Discontinued Losartan/Hydrochlorothiazide [Losartan-Hctz 100-25 mg Tab] 1 tab PO DAILY Ipratropium-Albuterol Nebulize [Duoneb 0.5 mg-3 mg/3 ml Soln] 3 ml INHALATION RT-QID PRN PRN Reason: Shortness Of Breath Discharge Medication List Cholecalciferol [Vitamin D3] 2,000 unit PO DAILY 08/29/14 [History] Furosemide 20 mg PO DAILY 08/29/14 [History] Montelukast [Singulair] 10 mg PO DAILY 08/29/14 [History] Nitroglycerin Sl Tabs [Nitrostat] 0.4 mg PO Q5M PRN 08/29/14 [History] [place]-3 Fatty Acids/Fish Oil [Fish Oil 1,000 mg Softgel] 1 tab PO DAILY [History] Primidone [Mysoline] 50 mg PO DAILY 08/29/14 [History] Sertraline [Zoloft] 100 mg PO DAILY 08/29/14 [History] Simvastatin 10 mg PO DAILY 08/29/14 [History] Tiotropium 18 Mcg/Puff [Spiriva] 1 cap INHALATION RT-DAILY 08/29/14 [History] Albuterol Inhaler [Ventolin Hfa Inhaler] 2 puff INHALATION RT-Q4H PRN 03/23/18 [ History] Ascorbic Acid [Vitamin C] 1,000 mg PO DAILY 03/23/18 [History] Carboxymethylcellulose Sodium [Refresh Tears] 1 drop BOTH EYES DAILY 03/23/18 [ History] Cranberry Fruit Extract [Cranberry] 500 mg PO DAILY 03/23/18 [History] Fluticasone/Salmeterol [Advair 250-50 Diskus] 1 puff INHALATION RT-BID 03/23/18 [History] Levothyroxine Sodium [Synthroid] 100 mcg PO DAILY 03/23/18 [History] Potassium Chloride Er 10 Meq Capsule 10 meq PO DAILY 03/23/18 [History] Cefuroxime Axetil [Ceftin] 500 mg PO BID 3 Days #10 tab 03/26/18 [Rx] Follow up Appointment(s)/Referral(s): Olya Melgar, [NON-STAFF] - Brent Batista DO [Primary Care Provider] - 3 Days Patient Instructions/Handouts: Viral Pneumonia (DC), Urinary Tract Infection in Women (GEN) Activity/Diet/Wound Care/Special Instructions: Activity as tolerated. Make post hospitalization appt with your Dr. Melgar will call you and tell you when they will come first to visit you. Discharge Disposition: HOME WITH HOME HEALTH SERVICES
== END 2018-03-26 16:16 | disposition home health service (06) | DRG 872 ==
LOC: EC 16:42 → 3SCARD 20:20 → INTOOBSV 20:20 → 4MS4W 03-24 20:26 → OBSVTOIN 03-26 09:13
PROVIDERS: ADMIT Hospitalist; ATTEND Hospitalist
DX: A41.51 Sepsis due to Escherichia coli [E. coli] (principal); N17.9 Acute kidney failure, unspecified; N39.0 Urinary tract infection, site not specified; J44.0 Chronic obstructive pulmonary disease with (acute) lower respiratory infection; E03.9 Hypothyroidism, unspecified; E78.5 Hyperlipidemia, unspecified; E87.6 Hypokalemia; F32.9 Major depressive disorder, single episode, unspecified; G25.0 Essential tremor; I10 Essential (primary) hypertension; M19.90 Unspecified osteoarthritis, unspecified site; T50.2X5A Adverse effect of carbonic-anhydrase inhibitors, benzothiadiazides and other diuretics, initial encounter; Z88.0 Allergy status to penicillin; Z90.710 Acquired absence of both cervix and uterus; Z79.899 Other long term (current) drug therapy; Z79.890 Hormone replacement therapy; Z79.51 Long term (current) use of inhaled steroids; Z90.49 Acquired absence of other specified parts of digestive tract
CPT/HCPCS: 36415; 70450; 71046; 80048; 80053; 81001; 82550; 82553; 83605; 83735; 84100; 84132; 84443; 84484; 85025; 85027; 85610; 85730; 87040; 87077; 87086; 87186; 87502; 93005; 93306; 94640; 96361; 96365; 99285

== ENCOUNTER → 2019-02-18 | Outpatient (CLI) | payer MEDICARE, OTHER ==
--- NOTE | 2019-02-18 12:32 | CONS ---
CONSULTATION DATE OF SERVICE: 02/18/2019 This 78-year-old lady had been evaluated in the sleep center for obstructive sleep apnea-hypopnea syndrome. HISTORY OF PRESENT ILLNESS/SLEEP-WAKE EVALUATION: The patient has been diagnosed with obstructive sleep apnea about 17 years ago, but was not able to use CPAP therapy secondary to mask problems and pressure problems. Presently her sleep schedule is irregular, but usually she goes to sleep around 3 a.m. and sleeps until around 6 a.m. and then she takes several naps during the day in the morning and in afternoon. She has TV set in bedroom. She sleeps on the back or in the chair. She wakes up from sleep several times with nocturia. She is grinding her teeth. Has awakenings with dry mouth, panic attacks, episodes of palpitations and restless leg symptoms. During the day, patient feels significantly tired and sleepy. [place] Sleepiness Scale increased to 14 and as already mentioned above, she takes several naps during the day. PAST MEDICAL HISTORY: Positive for asthma and COPD, depression, hyperlipidemia, hypothyroidism, familial tremor, back problems. PAST SURGICAL HISTORY: Tonsillectomy, adenoidectomy, cholecystectomy, appendectomy, polyps removed from the colon, total hysterectomy. SOCIAL HISTORY: Positive for smoking for about 8 years, about one third of a pack a day. Quit about 50 years ago. Alcohol consumption none at the present time. FAMILY HISTORY: Hypertension, angina, heart problems, fibromyalgia, arthritis, asthma, lung problems, emphysema, familial tremor, pneumonia, headaches, cancer, restless legs, anemia, thyroid problems, diabetes, liver problems, acid reflux, ulcers. REVIEW OF SYSTEMS: Problems with the sleep, multiple awakenings from sleep, tiredness and sleepiness during the day, difficulties to walk, tremor. PHYSICAL EXAMINATION: During physical exam, lady without distress. VITAL SIGNS: BP 80/61, HR 70, RR 16, height 5 feet 0, weight 205, body mass index 40.0, temperature 98.0, oxygen saturation at room air 96%. HEENT: PERRLA, EOMI. Oropharynx extremely low position of soft palate. Mallampati 4. Wide neck 18-1/4 inches in circumference. Restriction of nasal breathing. NECK:Supple, no JVD. Thyroid is not palpable. LUNGS: Clear to percussion and to auscultation. Good air exchange. No wheezing or rhonchi. HEART: S1, S2 regular. No murmurs, gallops, or rubs. ABDOMEN: Obese. EXTREMITIES: 1+ bilateral ankle edema. STEELSCOPE OPERATOR: Tremor of the hands, legs, and face. Finger nasal negative. IMPRESSION: 1. Snoring, history of obstructive sleep apnea diagnosed about 17 years ago, multiple awakenings from sleep with dry mouth and nocturia, extremely low position of soft palate, Mallampati 4, wide neck 18-1/4 inches in circumference, daytime sleepiness with [place] Sleepiness Scale 14, obstructive sleep apnea-hypopnea syndrome. 2. Obesity, body mass index 40.0. 3. History of asthma and chronic obstructive pulmonary disease. 4. History of hypertension. 5. History of depression. 6. Hypothyroidism. 7. Familial tremor. 8. Status post tonsillectomy and adenoidectomy. 9. Status post cholecystectomy. 10.Status post total hysterectomy. PLAN: 1. Polysomnography for evaluation of patient's breathing during sleep. 2. CPAP/BiPAP titration if sleep study confirms obstructive sleep apnea-hypopnea syndrome. 3. Preferable position during sleep on the side. 4. No driving if patient feels any sleepiness. 5. 5. I will see patient for follow up visit to explain results of testing and following plan. Thank you very much for referring this patient for consultation. Sincerely, Royal Velarde MD, PhD, FAASM Diplomat of [employer] [facility] Director of [facility] [place] MMODL / IJN: [id number] /
== END | disposition home or self-care (01) ==
LOC: SLEEP 09:59
PROVIDERS: ATTEND Internal Medicine
DX: G47.33 Obstructive sleep apnea (adult) (pediatric) (principal); E66.9 Obesity, unspecified; E03.9 Hypothyroidism, unspecified; G25.0 Essential tremor; Z68.41 Body mass index [BMI] 40.0-44.9, adult; Z86.79 Personal history of other diseases of the circulatory system; Z87.09 Personal history of other diseases of the respiratory system; Z86.59 Personal history of other mental and behavioral disorders; Z87.891 Personal history of nicotine dependence; Z90.09 Acquired absence of other part of head and neck; Z90.49 Acquired absence of other specified parts of digestive tract; Z90.710 Acquired absence of both cervix and uterus
CPT/HCPCS: 99211

== ENCOUNTER → 2019-03-04 | Outpatient (CLI) | payer MEDICARE, OTHER ==
--- NOTE | 2019-03-04 10:02 | US ---
EXAMINATION TYPE: US thyroid st tissue head/neck DATE OF EXAM: 03/04/2019 COMPARISON: NONE CLINICAL HISTORY: E03.9 Hypothyroidism, R13.10 Dysphagia. On thyroid meds GLAND SIZE: Right Lobe: 2.8 x 1.4 x 1.2 cm Overall Parenchyma: heterogenous Left Lobe: 2.8 x 1.0 x 1.9 cm Overall Parenchyma: heterogeneous Isthmus Thickness: 0.2 cm NODULES RIGHT: # of nodules measured on right: 0 LEFT: # of nodules measured on left: 0 ISTHMUS: # of nodules measured in the isthmus: 0 Bilateral neck scanned, no evidence of lymphadenopathy. IMPRESSION: Thyroid heterogeneity without distinct nodule identified at this time.
== END | disposition home or self-care (01) ==
LOC: RADUSWWP 09:16
PROVIDERS: ATTEND Physician Assistant Medical
DX: R94.6 Abnormal results of thyroid function studies (principal); R13.10 Dysphagia, unspecified; E03.9 Hypothyroidism, unspecified
CPT/HCPCS: 76536

== ENCOUNTER → 2019-07-22 | Outpatient (CLI) | payer MEDICARE, OTHER ==
--- NOTE | 2019-07-22 11:07 | SFUN ---
SLEEP CENTER FOLLOW UP NOTE DATE OF SERVICE: 07/21/2026 This is a 78-year-old lady who had been followed in Sleep Center for treatment of obstructive sleep apnea-hypopnea syndrome. Recently patient had a polysomnogram and titration and received new CPAP unit. This is her first visit with the new CPAP unit. The patient is able to use CPAP equipment every night. She feels that she sleeps well with the machine, feels better during the day. [place] Sleepiness Scale today is 11. I checked her CPAP unit. CPAP pressure is 10 cm of water. Usage is 30 out of 30 nights and 27 out of 30 nights for more than 4 hours with average usage 5.6 hours per night. Leak is only 1 L/minute. Apnea-hypopnea index only 1.7 which is absolutely normal. The patient is using a full-face mask may have slight irritation over the bridge of her nose. MEDICATIONS: , simvastatin, losartan, sertraline, furosemide, Primidone, Singulair, levothyroxine, Advair, Ditropan, albuterol. PHYSICAL EXAMINATION: During physical exam, patient in no distress. VITAL SIGNS: BP 157/65, HR 63, RR 16, weight 208.4, temperature 97.4, oxygen saturation on room air 93%. HEENT: PERRLA, EOMI. Oropharynx extremely low position of soft palate. Mallampati 4. NECK: Supple, no JVD. Thyroid is not palpable. LUNGS: Clear to percussion and to auscultation. Good air exchange. No wheezing or rhonchi. HEART: S1, S2 regular. No murmurs, gallops, or rubs. ABDOMEN: Obese. EXTREMITIES: 1+ ankle edema. ENGINEERING ADMINISTRATOR: Awake, alert, and oriented X3. Cranial nerves 2 to 7 intact. There is no fasciculation or atrophy. noted. No focal deficits observed. IMPRESSION: 1. Severe obstructive sleep apnea-hypopnea syndrome; apnea-hypopnea index 50.5 with oxygen desaturation to 81.2%. The patient demonstrated practically 100% compliance with treatment benefitting from treatment normal aspiration on CPAP. 2. Obesity. 3. History of asthma and chronic obstructive pulmonary disease. 4. History of hypertension. 5. History of depression. 6. Hypothyroidism. 7. Familial tremor. 8. Status post tonsillectomy and adenoidectomy. 9. Status post cholecystectomy. 10.Status post total hysterectomy. PLAN: 1. Patient will continue to use CPAP equipment every night for the whole night. 2. Losing weight. 3. Sleep hygiene with regular time in bed for at least 7-1/2 to 8 hours. 4. Precautions related to driving. No driving if feeling sleepiness. 5. We will consider to use DreamWear mask, which does not cover nose from above. 6. I will maintain all necessary CPAP supplies prescription for the patient. Thank you very much for allowing me to participate in management of your patient. Sincerely, Royal Velarde MD, PhD, FAASM Diplomat of [place] [employer] Specialties [place] [employer] Vocational Education Professional of [facility] [place] MMODL / IJN: [id number] /
== END | disposition home or self-care (01) ==
LOC: SLEEP 10:10
PROVIDERS: ATTEND Internal Medicine
DX: G47.33 Obstructive sleep apnea (adult) (pediatric) (principal); E66.9 Obesity, unspecified; J44.9 Chronic obstructive pulmonary disease, unspecified; Z87.09 Personal history of other diseases of the respiratory system; Z86.59 Personal history of other mental and behavioral disorders; E03.9 Hypothyroidism, unspecified; G25.0 Essential tremor; Z86.79 Personal history of other diseases of the circulatory system; Z90.49 Acquired absence of other specified parts of digestive tract; Z90.710 Acquired absence of both cervix and uterus; Z90.89 Acquired absence of other organs; Z79.899 Other long term (current) drug therapy

== ENCOUNTER → 2019-11-02 | Outpatient (CLI) | payer MEDICARE, OTHER ==
--- NOTE | 2019-11-02 11:49 | MM ---
Reason for exam: additional evaluation requested from prior study. Last mammogram was performed 2 years and 3 months ago. History: Patient is postmenopausal and history of other cancer. Family history of breast cancer in paternal aunt. Benign MG stereo VAD BX RT of the right breast, January 03, 2016. Took estrogen for 3 years beginning at age 58. Physical Findings: Nurse did not find any significant physical abnormalities on exam. MG 3D Diag Mammo W/Cad NAZ Bilateral CC and MLO view(s) were taken. Prior study comparison: August 14, 2017, bilateral MG 3d screening mammo w/cad. July 12, 2016, right breast MG 3d diag mammo w/cad RT. The breast tissue is extremely dense which could obscure a lesion on mammography. There are benign appearing round dystophic calcifications bilaterally. There is chronic nodularity bilaterally. There is no discrete abnormality. These results were verbally communicated with the patient and result sheet given to the patient on 11/02/19. ASSESSMENT: Benign, BI-RAD 2 RECOMMENDATION: Routine screening mammogram of both breasts in 1 year.
== END | disposition home or self-care (01) ==
LOC: RADMAMWWP 10:54
PROVIDERS: ATTEND Physician Assistant Medical
DX: N63.20 Unspecified lump in the left breast, unspecified quadrant (principal)
CPT/HCPCS: 77066; G0279; 77062

== ENCOUNTER → 2020-01-27 | Outpatient (CLI) | payer MEDICARE, OTHER ==
--- NOTE | 2020-01-27 19:10 | SFUN ---
SLEEP CENTER FOLLOW UP NOTE DATE OF SERVICE: 01/27/2020 This patient is a 79-year-old lady who has been followed in Sleep Center for treatment of obstructive sleep apnea-hypopnea syndrome. The patient continues to use her CPAP equipment. Sometimes she feels uncomfortable with her mask. She is using a full-face mask, part of which goes under the nose, but sometimes during the night the mask goes out, according to the patient. [place] Sleepiness Scale today is 10. I checked patient's CPAP unit. CPAP pressure is 10 cm of water. Usage is 24/30 nights, average usage 4 hours per night. Leak 6 L/minute. Apnea-hypopnea index 2.0, which is normal. MEDICATIONS: 1. Albuterol inhaler. 2. Furosemide 20 mg tablet once a day. 3. Losartan 100 mg, hydrochlorothiazide 25 mg tablet once a day. 4. Primidone 50 mg once daily. 5. Simvastatin 10 mg every night. 6. Singulair 10 mg once daily. 7. Levothyroxine 100 mcg 1 daily. 8. Zoloft 100 mg once daily. 9. Baby aspirin 81 mg once daily. 10.Advair Diskus powder for inhalation twice daily. 11.Sertraline 100 mg up to one time daily. PHYSICAL EXAMINATION: GENERAL: A pleasant lady without distress. VITAL SIGNS: BP 126/49, HR 66, RR 16, height 59-1/2, weight 211.4. Patient's weight increased by 3 pounds since last visit. Temperature 98.3, oxygen saturation at room air 96%. HEENT: PERRLA, EOMI. Evaluation of oropharynx showed tongue protrudes midline. Extremely low position of soft palate. Mallampati IV. NECK: Supple. No JVD. Thyroid is not palpable. LUNGS: Clear to percussion and to auscultation. Good air exchange. No wheezing or rhonchi. HEART: S1, S2 regular. No murmurs, gallops or rubs. ABDOMEN: Slightly obese. EXTREMITIES: No clubbing or cyanosis. E COMMERCE MARKETING MANAGER: Awake, alert, and oriented X3. Cranial nerves 2 to 7 intact. There is no fasciculation or atrophy. noted. No focal deficits observed. IMPRESSION: 1. Severe obstructive sleep apnea-hypopnea syndrome. The patient demonstrated good compliance with treatment, benefitting from treatment. 2. Obesity. 3. History of asthma and chronic obstructive pulmonary disease. 4. History of hypertension. 5. History of depression. 6. Hypothyroidism. 7. History of familial tremor. 8. Status post tonsillectomy and adenoidectomy. 9. Status post cholecystectomy. 10.Status post hysterectomy. PLAN: 1. Patient will continue to use PAP equipment every night for the whole night. 2. Sleep hygiene with regular time in bed for at least 7-1/2 to 8 hours. 3. Precautions related to driving. No driving if feeling sleepiness. 4. I will maintain all necessary prescription for PAP supplies including mask, tube, filters. 5. Watching weight. 6. No driving if feeling sleepiness. 7. Follow-up visit in 6 months or earlier if patient has any problems. 8. We will try a nasal pillow mask small size. Thank you very much for allowing me to participate in the management of your patient. Sincerely, oRyal Velarde MD, PhD, FAASM Diplomat of [place] Board of Medical Specialties [place] Board of Internal Medicine [place] Operator of [facility] [place] MMODL / IJN: [id number] /
== END | disposition home or self-care (01) ==
LOC: SLEEP 10:05
PROVIDERS: ATTEND Internal Medicine
DX: G47.33 Obstructive sleep apnea (adult) (pediatric) (principal); E66.9 Obesity, unspecified; E03.9 Hypothyroidism, unspecified; Z87.09 Personal history of other diseases of the respiratory system; Z86.79 Personal history of other diseases of the circulatory system; Z86.59 Personal history of other mental and behavioral disorders; Z86.69 Personal history of other diseases of the nervous system and sense organs; Z90.89 Acquired absence of other organs; Z90.49 Acquired absence of other specified parts of digestive tract; Z90.710 Acquired absence of both cervix and uterus; Z99.89 Dependence on other enabling machines and devices; Z79.51 Long term (current) use of inhaled steroids; Z79.899 Other long term (current) drug therapy; Z79.890 Hormone replacement therapy; Z79.82 Long term (current) use of aspirin

== ENCOUNTER → 2020-08-10 | Outpatient (CLI) | payer MEDICARE, OTHER ==
--- NOTE | 2020-08-10 12:45 | SFUN ---
SLEEP CENTER FOLLOW UP NOTE DATE OF SERVICE: 08/10/2020 This 80-year-old lady has been followed in Sleep Center for treatment of obstructive sleep apnea-hypopnea syndrome. The patient successfully continuing to use her CPAP equipment every night, but sometimes when she wakes up in the middle of the night and go to rest room she did not put her mask back. Otherwise, she is able to use her CPAP equipment very well. She is also using it during the middle of the day if she takes any naps. [place] Sleepiness Scale today is 10, which is borderline. I checked CPAP unit. CPAP pressure is 10 cm of water. Usage is 25 out of 30 nights, 11 out of 30 nights more than 4 hours with average usage 3.8 hours per night. Leak is 38 L per minute, which is borderline. Apnea-hypopnea index only 1.2, which is totally normal. The patient using Fit P10 small mask with a heated tube. MEDICATIONS: Advair, levothyroxine 100 mcg once a day, losartan hydrochlorothiazide 100 mg-25 mg once a day, furosemide 20 mg once a day, sertraline 100 mg once a day, primidone 50 mg once a day, simvastatin 10 mg once a day, Ventolin. PHYSICAL EXAMINATION: GENERAL: Patient in no distress. VITAL SIGNS: BP 130/88, HR 75, RR 12, height 5 feet 0 inches, weight 211.4, BMI 41.2, temperature 97.1, oxygen saturation at room air 94%. HEENT: PERRLA, EOMI. Oropharynx extremely low position of soft palate. Mallampati IV. NECK: Supple, no JVD. Thyroid is not palpable. LUNGS: Clear to percussion and to auscultation. Good air exchange. No wheezing or rhonchi. HEART: S1, S2 regular. No murmurs, gallops, or rubs. ABDOMEN: Obese. EXTREMITIES: No clubbing or cyanosis. TRANSFORMER REPAIRER: Awake, alert, and oriented X3. Cranial nerves 2 to 7 intact. There is no fasciculation or atrophy. noted. No focal deficits observed. IMPRESSION: 1. Severe obstructive sleep apnea-hypopnea syndrome. Patient benefitting from CPAP treatment, normal respiration on CPAP. 2. History of asthma and chronic obstructive pulmonary disease. 3. Obesity. 4. History of hypertension. 5. History of depression. 6. Hypothyroidism. 7. History of familial tremor. 8. Status post tonsillectomy and adenoidectomy. 9. Status post cholecystectomy. 10.Status post hysterectomy. PLAN: 1. I discussed with the patient necessity to use the CPAP equipment for the whole night. Explained to her that in the morning, there are more periods of REM sleep during the REM sleep there are more chances to have abnormalities of respiration. She should not take her mask off when she goes to the restroom, just disconnect the tube and then put connection back. 2. Patient will continue to use PAP equipment every night for the whole night. 3. Sleep hygiene with regular time in bed for at least 7-1/2 to 8 hours. 4. Precautions related to driving. No driving if feeling sleepiness. 5. I will maintain all necessary prescription for PAP supplies including mask, tube, filters. 6. Watching weight. 7. Follow-up visit in 6 months or earlier if patient has any problems. Thank you very much for allowing me to participate in management of your patient. Sincerely, MD Prachi, PhD, FAASM Diplomat of [place] Board [employer] Medical Specialties [place] Board of Internal Medicine Booking Agent of [facility] [place] MMODL / RUBIN: [id number] /
== END ==
LOC: SLEEP 09:40
PROVIDERS: ATTEND Internal Medicine
DX: G47.33 Obstructive sleep apnea (adult) (pediatric) (principal); J44.9 Chronic obstructive pulmonary disease, unspecified; E66.9 Obesity, unspecified; I10 Essential (primary) hypertension; F32.9 Major depressive disorder, single episode, unspecified; E03.9 Hypothyroidism, unspecified; Z79.890 Hormone replacement therapy; Z79.51 Long term (current) use of inhaled steroids; Z79.899 Other long term (current) drug therapy; Z86.69 Personal history of other diseases of the nervous system and sense organs; Z90.49 Acquired absence of other specified parts of digestive tract; Z90.710 Acquired absence of both cervix and uterus; Z90.89 Acquired absence of other organs; Z99.89 Dependence on other enabling machines and devices

== ENCOUNTER → 2021-01-29 | Outpatient (CLI) | payer MEDICARE, OTHER | END | disposition home or self-care (01) | LOC: LABWHC1 13:30 | PROVIDERS: ATTEND Ophthalmology | DX: G44.219 Episodic tension-type headache, not intractable (principal) | CPT/HCPCS: 36415; 85652; 86140 ==

== ENCOUNTER → 2021-02-21 | Outpatient (CLI) | payer MEDICARE, OTHER ==
--- NOTE | 2021-02-21 19:37 | XR ---
EXAMINATION TYPE: XR hand complete LT DATE OF EXAM: 02/21/2021 CLINICAL HISTORY: Generalized pain for several weeks. TECHNIQUE: Frontal, lateral and oblique images of the left hand are obtained. COMPARISON: None. FINDINGS: [place] osseous structures are demineralized. Moderate to severe narrowing at base of first metacarpal. Degenerative the narrowing throughout PIP and DIP joints along with MCP joint, several le vels of moderate to severe in appearance. Most prominent findings second and third DIP joint for exam ple where there is mild peripheral spurring. Moderate narrowing and spurring first interphalangeal allie int. Mild to moderate diffuse soft tissue swelling greatest at the third PIP joint. IMPRESSION: As above.
== END | disposition home or self-care (01) ==
LOC: RADXRYALE 15:56
PROVIDERS: ATTEND Physician Assistant Medical
DX: M19.042 Primary osteoarthritis, left hand (principal)

== ENCOUNTER → 2021-12-05 | Outpatient (CLI) | payer MEDICARE, OTHER ==
--- NOTE | 2021-12-05 15:01 | P.PN ---
Subjective DATE: 12/05/2021 FOLLOW UP VISIT. Patient with obstructive sleep apnea hypopnea syndrome return to sleep center for follow-up visit. Information from previous visit have been reviewed. Patient is using PAP equipment every night for the whole night, getting PAP supplies in time. The patient does not have significant problems with the mask, PAP unit and humidification. [place] sleepiness scale is increased to 14. I checked information from PAP unit. PAP unit pressure 10 cm H2O. Usage is 57 % for more then 4 hours, average 4 hours 15 minutes per night. Leak is increased to 47.3 l/m, possibly patient opens her mouth. Sometimes she'll feel dryness in the mouth. Apnea Hypopnea Index is 1.5, which is normal. MEDICATIONS:1. Nitrostat 0.4 mg sublingual tablets 2. Atrovent inhaler 3. Losartanhydrochlorothiazide 91979 milligrams tablet once a day 4. Levothyroxine 100 g once a day 5. Simvastatin 10 mg once a day 6. Ipratropiumalbuterol nebulizer 7. Sertraline 100 mg once a day 8. Singulair 10 mg once a day 9. Aspirin 81 mg once a day 10. Advair During physical exam: GENERAL: A pleasant patient without any distress. VITAL SIGNS: BP 122/72, HR 71, RR 20, weight 210.6, temperature 97.3, oxygen saturation at room air 94 % . HEENT: PERRLA, EOMI.low position of soft palate, Mallapati4 . NECK: Supple. No JVD. LUNGS: Clear to percussion and to auscultation. Good air exchange. No wheezing or rhonchi. HEART: S1, S2 regular. ABDOMEN: Soft and nontender. Obese EXTREMITIES: No clubbing or cyanosis. BASEBALL INSPECTOR: Awake, alert, and oriented x3. No focal deficit. Impressions: 1. Obstructive sleep apnea-hypopnea syndrome. Patient demonstrated good compliance with treatment, benefiting from treatment. 2. Hypertension. 3. History of COPD and asthma. 4. Obesity. 5. Depression. 6. Hypothyroidism. 7. History of familial tremor. 8. Status post tonsillectomy and adenoidectomy. 9. Status post cholecystectomy. 10. Status post hysterectomy. Plan: 1. Continue using PAP equipment every night for the whole night. Patient should use chin strap to prevent dryness in the mouth and significant leak. 2. To change air filter at least 1-2 times per month. 3. PAP unit should stay lower then position of the head. 4. Advised patient to remove all remaining water from humidifier canister daily and make it dry after each usage. Refill canister with fresh distilled water before each usage. 5. Sleep hygiene with regular time in bed for at least 8 hours. 6. Precautions related to driving. No driving if feel any sleepiness. 7. I will maintain prescription for PAP supplies including mask, tube, filters. 8. Follow up visit in 6 months or earlier if patient has any problems. 9. Watching weight. Thank you very much for allowing me to participate in the management of your patient. Royal Velarde MD, PhD, FAASM. Diplomat of [place] Board [employer] Sleep Medicine, Sleep Medicine Board by [place] Board of Internal Medicine Cable Television Access Coordinator of [facility] [place]
== END ==
LOC: SLEEP 13:37
PROVIDERS: ATTEND Internal Medicine
DX: G47.33 Obstructive sleep apnea (adult) (pediatric) (principal); I10 Essential (primary) hypertension; J44.9 Chronic obstructive pulmonary disease, unspecified; E66.9 Obesity, unspecified; F32.A Depression, unspecified; E03.9 Hypothyroidism, unspecified; Z90.49 Acquired absence of other specified parts of digestive tract; Z90.710 Acquired absence of both cervix and uterus; Z90.89 Acquired absence of other organs; Z86.69 Personal history of other diseases of the nervous system and sense organs; Z79.890 Hormone replacement therapy; Z79.899 Other long term (current) drug therapy; Z79.51 Long term (current) use of inhaled steroids; Z88.1 Allergy status to other antibiotic agents; Z91.041 Radiographic dye allergy status
CPT/HCPCS: 99212

== ENCOUNTER → 2023-01-02 | Outpatient (CLI) | payer MEDICARE, OTHER ==
--- NOTE | 2023-01-02 10:49 | P.PN ---
Subjective DATE: 01/02/2023 FOLLOW UP VISIT. Patient with obstructive sleep apnea hypopnea syndrome return to sleep center for follow-up visit. Information from previous visit have been reviewed. Patient is using PAP equipment every night for the whole night, getting PAP supplies in time. The patient does not have significant problems with the mask, PAP unit and humidification. [place] sleepiness scale is 8. I checked information from PAP unit. PAP unit pressure 10 cm H2O. Usage is 70 % for more then 4 hours. Leak is/increased to 46 l/m. Apnea Hypopnea Index is 3.4, which is normal. MEDICATIONS:1. Furosemide 20 mg once a day 2. Losartan 100 mg once a day 3. Atrovent 4. Levothyroxine 100 g once a day 5. Omeprazole 6. Sertraline 7. Nitrostat During physical exam: GENERAL: A pleasant patient without any distress. VITAL SIGNS: BP 121/73, HR 64, RR 16, weight 196.0, temperature 97.8, oxygen saturation at room air 96 % . HEENT: PERRLA, EOMI.low position of soft palate, Mallapati 4 . NECK: Supple. No JVD. LUNGS: Clear to percussion and to auscultation. Good air exchange. No wheezing or rhonchi. HEART: S1, S2 regular. ABDOMEN: Soft and nontender. Obese EXTREMITIES: No clubbing or cyanosis. EXPORT TRAFFIC DEPARTMENT MANAGER: Awake, alert, and oriented x3. No focal deficit. Impressions: 1. Obstructive sleep apnea-hypopnea syndrome. Patient demonstrated great compliance with treatment, benefiting from treatment. 2. Asthma and COPD. 3. Hypertension. 4. Obesity. 5. Hypothyroidism. 6. Depression. 7. History of familial tremor. 8. Status post hysterectomy. 9. Status post tonsillectomy and adenoidectomy. Plan: 1. Continue using PAP equipment every night for the whole night. 2. To change air filter at least 1-2 times per month. 3. PAP unit should stay lower then position of the head. 4. Advised patient to remove all remaining water from humidifier canister daily and make it dry after each usage. Refill canister with fresh distilled water be fore each usage. 5. Sleep hygiene with regular time in bed for at least 8 hours. 6. Precautions related to driving. No driving if feel any sleepiness. 7. I will maintain prescription for PAP supplies including mask, tube, filters. 8. Follow up visit in 6 months or earlier if patient has any problems. 9. Watching and losing weight. Thank you very much for allowing me to participate in the management of your patient. Royal Velarde MD, PhD, FAASM. Diplomat of [place] Board [employer] Sleep Medicine, Sleep Medicine Board by [place] Board of Internal Medicine Senior Erp Consultant of [facility] [place]
== END ==
LOC: 3 N SLEEP 09:53
PROVIDERS: ATTEND Internal Medicine
DX: G47.33 Obstructive sleep apnea (adult) (pediatric) (principal); J44.9 Chronic obstructive pulmonary disease, unspecified; E66.9 Obesity, unspecified; E03.9 Hypothyroidism, unspecified; I10 Essential (primary) hypertension; F32.A Depression, unspecified; Z98.890 Other specified postprocedural states; Z99.89 Dependence on other enabling machines and devices; Z79.890 Hormone replacement therapy; Z79.899 Other long term (current) drug therapy; Z88.0 Allergy status to penicillin; Z88.8 Allergy status to other drugs, medicaments and biological substances; Z79.51 Long term (current) use of inhaled steroids
CPT/HCPCS: 99212

== ENCOUNTER → 2023-01-08 | Outpatient (CLI) | payer MEDICARE, OTHER ==
--- NOTE | 2023-01-08 12:47 | BD ---
EXAMINATION TYPE: Axial Bone Density DATE OF EXAM: 01/08/2023 CLINICAL HISTORY: 82 years old Female. ICD-10 CODE: M85.9 DISORDER OF BONE DENSITY Height: 58.5 in Weight: 199 lbs FRAX RISK QUESTIONS: Family History (Parent hip fracture): yes mother History of Fracture in Adulthood: lt wrist fx age 50 Secondary Osteoporosis: 3. Menopause before 45: age 34 partial hysterectomy; galo ovaries removed age 59 RISK FACTORS HISTORY OF: History of Wrist Fracture: lt wrist age 50 Family History of Osteoporosis: yes father Active: limited Diet low in dairy products/other sources of calcium: yes Postmenopausal woman: age 34 partial hysterectomy; galo ovaries removed age 59 Take estrogen and/or progesterone medications: not now How long: took control for 10 years Lost more than 2 inches in height since high school: yes 4 inches Frequent falls: yes Poor Health: yes MEDICATIONS: Thyroid Medications: yes Which medication: Levothyroxine How Lon+ years Additional Medications: vit d, asthma meds, copd meds, blood pressure meds, EXAM MEASUREMENTS: Bone mineral densitometry was performed using the [employer] System. Bone mineral density as measured about the Lumbar spine is: ----- L1-L4(G/cm2): 1.310 T Score Values are as follows: ----- L1: 0.2 ----- L2: 0.4 ----- L3: 1.0 ----- L4: 2.2 ----- L1-L4: 1.1 Z Score Values are as follows: ----- L1: 1.3 ----- L2: 1.4 ----- L3: 2.0 ----- L4: 3.3 ----- L1-L4: 2.1 Bone mineral density baseline Bone mineral density about the R hip (g/cm2): 0.880 Bone mineral density about the L hip (g/cm2): 0.915 T Score values are as follows: -----R Neck: -1.9 -----L Neck: -1.4 -----R Total: -1.0 -----L Total: -0.7 Z Score values are as follows: -----R Neck: -0.1 -----L Neck: 0.3 -----R Total: 0.5 -----L Total: 0.8 Bone mineral density baseline FRAX%s: The graph provided illustrates a 32.1% chance for a major osteoporotic fx and a 19.0% chance for the hips probability for fx in 10 years time. IMPRESSION: Osteopenia (T Score between -2.5 and -1). There is slightly increased risk of fracture and the patient may be considered for treatment. Re-Screen 2-5 years. NOTE: T-SCORE=SD OF THE YOUNG ADULT MEAN.
--- NOTE | 2023-01-09 07:53 | MM ---
Reason for Exam: Screening (asymptomatic). Last mammogram was performed 3 year(s) and 2 month(s) ago. Patient History: Menarche at age 12. First Full-Term at age 30. Late child-bearing (after 30). Left ovary removed at age 34. Right ovary removed at age 34. Hysterectomy at age 34. Postmenopausal. Estrogen for 3 years from age 58 until age 61. 01/03/2016, Benign Core Biopsy on the right side. Paternal aunt had breast cancer. Risk Values: Laura 5 year model risk: 2.6%. NCI Lifetime model risk: 3.4%. Prior Study Comparison: 07/12/2016 Right Diagnostic Mammogram, [facility]. 08/14/2017 Bilateral Screening Mammogram, [facility]. 11/02/2019 Bilateral Diagnostic Mammogram, [facility]. Tissue Density: The breast tissue is heterogeneously dense. This may lower the sensitivity of mammography. Findings: Analyzed By CAD. There is no suspicious group of microcalcifications or new suspicious mass in either breast. Benign calcifications within both breasts. Right breast biopsy clip. Overall Assessment: Benign, BI-RAD 2 Management: Screening Mammogram of both breasts in 1 year. A clinical breast exam by your physician is recommended on an annual basis and results should be correlated with mammographic findings. Note on Laura scores and lifetime risk: 1. A Laura score greater than 3% is considered moderate risk. If this is the case, consider specialist referral to assess eligibility for a risk reducing agent. If overall lifetime risk for the development of breast cancer is 20% or higher, the patient may qualify for future screening with alternating mammogram and breast MRI. Electronically signed and approved by: Mikey Garcia D.O.
== END | disposition home or self-care (01) ==
LOC: RADMAMWWP 10:00
PROVIDERS: ATTEND Family Medicine
DX: Z12.31 Encounter for screening mammogram for malignant neoplasm of breast (principal); M85.88 Other specified disorders of bone density and structure, other site; Z78.0 Asymptomatic menopausal state; Z80.3 Family history of malignant neoplasm of breast; Z90.711 Acquired absence of uterus with remaining cervical stump
CPT/HCPCS: 77063; 77067; 77080

== ENCOUNTER → 2023-06-20 | Outpatient (CLI) | payer MEDICARE, OTHER ==
--- NOTE | 2023-06-20 10:06 | XR ---
EXAMINATION TYPE: XR chest 2V DATE OF EXAM: 06/20/2023 COMPARISON: 03/24/2018 HISTORY: Shortness of breath TECHNIQUE: Frontal and lateral views of the chest are obtained. FINDINGS: Scattered senescent parenchymal changes noted. Hyperinflation compatible with COPD. No evidence for infiltrate. No evidence for atelectasis. Heart size is stable. Mediastinal structures are stable and grossly unremarkable. No evidence for hilar prominence. Degenerative changes dorsal spine. IMPRESSION: 1. No evidence for acute pulmonary disease.
== END | disposition home or self-care (01) ==
LOC: RADXRYALE 09:34
PROVIDERS: ATTEND Physician Assistant Medical
DX: R06.02 Shortness of breath (principal); R05.9 Cough, unspecified
CPT/HCPCS: 71046

== ENCOUNTER → 2023-07-24 | Outpatient (CLI) | payer MEDICARE ==
[2023-07-24 11:09] VITALS: BP 130/57; PULSE 70; RESP 16; TEMP 98.1
--- NOTE | 2023-07-24 11:11 | P.PN ---
Subjective DATE: 07/24/2023 FOLLOW UP VISIT. Patient with obstructive sleep apnea hypopnea syndrome return to sleep center for follow-up visit. Information from previous visit have been reviewed. Patient is using PAP equipment every night for the whole night, getting PAP supplies in time. The patient does not have significant problems with the mask, PAP unit and humidification. [place] sleepiness scale is 8. I checked information from PAP unit. PAP unit pressure 10 cm H2O. Usage is 80% of nights, patient had period when she had plugged nose and she was not able to use CPAP, average 3.8 hours per night. Leak is 31l/m, which is in acceptable range. Apnea Hypopnea Index is 1.6, which is normal. MEDICATIONS:1. Levothyroxine 100 mcg once a day 2. Omeprazole 3. Sertraline 4. Atrovent 5. Losartan 6. Nitrostat During physical exam: GENERAL: A pleasant patient without any distress. VITAL SIGNS: Please see below. HEENT: PERRLA, EOMI.low position of soft palate, Mallapati[] . NECK: Supple. No JVD. LUNGS: Clear to percussion and to auscultation. Good air exchange. No wheezing or rhonchi. HEART: S1, S2 regular. ABDOMEN: Soft and nontender.[] EXTREMITIES: No clubbing or cyanosis. 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 No focal deficit. Impressions: 1. Obstructive sleep apnea-hypopnea syndrome. Patient demonstrated borderline compliance with treatment, benefiting from treatment. 2. History of asthma and COPD. 3. Hypothyroidism. 4. Hypertension. 5. Obesity. 6. Depression. 7. Familial tremor. 8. Status post tonsillectomy and adenoidectomy. 9. Status post hysterectomy. Plan: 1. Continue using PAP equipment every night for the whole night. 2. To change air filter at least 1-2 times per month. 3. PAP unit should stay lower then position of the head. 4. Advised patient to remove all remaining water from humidifier canister daily and make it dry after each usage. Refill canister with fresh distilled water before each usage. 5. Sleep hygiene with regular time in bed for at least 8 hours. 6. Precautions related to driving. No driving if feel any sleepiness. 7. I will maintain prescription for PAP supplies including mask, tube, filters. 8. Watching and losing weight. 9. Follow up visit in 6 months or earlier if patient has any problems. Thank you very much for allowing me to participate in the management of your patient. Royal Velarde MD, PhD, FAASM. Diplomat of [place] [employer], Sleep Medicine Board by [place] [employer] of [facility] [place] Objective - Vital Signs Vital signs: Vital Signs Temp 98.1 F 07/24/23 10:40 Pulse 70 07/24/23 10:40 Resp 16 07/24/23 10:40 BP 130/57 07/24/23 10:40 Pulse Ox 97 07/24/23 10:40 FiO2 Intake & Output 07/23/23 07/24/23 07/24/23 18:59 06:59 18:59 Weight 88.904 kg
== END ==
LOC: 3 N SLEEP 09:37
PROVIDERS: ATTEND Internal Medicine
DX: G47.33 Obstructive sleep apnea (adult) (pediatric) (principal); J44.89 Other specified chronic obstructive pulmonary disease; E03.9 Hypothyroidism, unspecified; E66.9 Obesity, unspecified; F32.A Depression, unspecified; I10 Essential (primary) hypertension; G25.0 Essential tremor; Z90.710 Acquired absence of both cervix and uterus; Z98.890 Other specified postprocedural states; Z90.89 Acquired absence of other organs; Z79.890 Hormone replacement therapy; Z99.89 Dependence on other enabling machines and devices; Z79.899 Other long term (current) drug therapy; Z68.39 Body mass index [BMI] 39.0-39.9, adult; Z88.0 Allergy status to penicillin; Z88.8 Allergy status to other drugs, medicaments and biological substances; Z79.51 Long term (current) use of inhaled steroids
CPT/HCPCS: 99212

== ENCOUNTER → 2023-11-26 | Outpatient (CLI) | payer MEDICARE ==
--- NOTE | 2023-11-26 07:55 | USB ---
Reason for Exam: Clinical finding. Patient History: Menarche at age 12. First Full-Term at age 30. Late child-bearing (after 30). Left ovary removed at age 34. Right ovary removed at age 34. Hysterectomy at age 34. Postmenopausal. Estrogen for 3 years from age 58 until age 61. 01/03/2016, Benign Core Biopsy on the right side. Paternal aunt had breast cancer. Risk Values: Laura 5 year model risk: 2.4%. NCI Lifetime model risk: 3.0%. Technique: Method: Targeted. Prior Study Comparison: 08/14/2017 Bilateral Screening Mammogram, [facility]. 11/02/2019 Bilateral Diagnostic Mammogram, [facility]. 01/08/2023 Bilateral MG 3D screening mammo w/cad, [facility]. Findings: The area of palpable concern of the left breast and the retroareolar of the left breast were scanned. There is a simple appearing cyst in the subareolar left breast at the palpable abnormality measuring 0.9 x 2.1 cm. At the 3:00 position 11 cm nipple is an irregular lobular hypoechoic area with posterior shadowing measuring 1.8 x 0.9 x 1.4 cm. Finding is suspicious ultrasound-guided core biopsy is recommended. Overall Assessment: Suspicious, BI-RAD 4 Management: Ultrasound Core Biopsy of the left breast. A clinical breast exam by your physician is recommended on an annual basis and results should be correlated with mammographic findings. This exam should not preclude additional follow-up of suspicious palpable abnormalities. Results were given to the patient verbally at the time of exam. Electronically signed and approved by: Taras Kirby D.O. Radiologis
--- NOTE | 2023-11-26 07:55 | MM ---
Reason for Exam: Clinical finding. Last screening mammogram was performed 11 month(s) ago. Patient History: Menarche at age 12. First Full-Term at age 30. Late child-bearing (after 30). Left ovary removed at age 34. Right ovary removed at age 34. Hysterectomy at age 34. Postmenopausal. Estrogen for 3 years from age 58 until age 61. 01/03/2016, Benign Core Biopsy on the right side. Paternal aunt had breast cancer. Risk Values: Laura 5 year model risk: 2.4%. NCI Lifetime model risk: 3.0%. Prior Study Comparison: 10/10/1995 Screening Mammogram, Unknown. 03/08/1997 Screening Mammogram, Unknown. 12/01/2015 Bilateral Screening Mammogram, [facility]. 12/19/2015 Right Diagnostic Mammogram, [facility]. 07/12/2016 Right Diagnostic Mammogram, [facility]. 08/14/2017 Bilateral Screening Mammogram, [facility]. 11/02/2019 Bilateral Diagnostic Mammogram, [facility]. 01/08/2023 Bilateral MG 3D screening mammo w/cad, [facility]. Tissue Density: The breasts are heterogeneously dense, which may obscure small masses. Findings: Analyzed By CAD. The pattern is symmetrical. In the upper outer quadrant left breast there is persistent density 4 cm transverse located 11 cm cyst. Correlate with the palpable marker. There is a 1.0 cm area nipple correlating with the second palpable area left breast. Comparison course calcifications outer aspect left breast present previously Right breast:No suspicious groups of microcalcifications, spiculated or lobular masses, architectural distortion or other secondary signs of malignancy are mammographically apparent. Overall Assessment: Incomplete: need additional imaging evaluation, BI-RAD 0 Management: Diagnostic Breast Ultrasound of the left breast. A negative mammogram report should not preclude additional follow up of suspicious palpable abnormalities. Patient should continue monthly self breast exam. A clinical breast exam by your physician is recommended on an annual basis and results should be correlated with mammographic findings. Note on Laura scores and lifetime risk: 1. A Laura score greater than 3% is considered moderate risk. If this is the case, consider specialist referral to assess eligibility for a risk reducing agent. 2. If overall lifetime risk for the development of breast cancer is 20% or higher, the patient may qualify for future screening with alternating mammogram and breast MRI. Electronically signed and approved by: Taras Kirby D.O. Radiologis
== END | disposition home or self-care (01) ==
LOC: RADMAMWWP 06:56
PROVIDERS: ATTEND Family Medicine
DX: N63.21 Unspecified lump in the left breast, upper outer quadrant (principal); R92.333 Mammographic heterogeneous density, bilateral breasts; Z78.0 Asymptomatic menopausal state; Z80.3 Family history of malignant neoplasm of breast
CPT/HCPCS: 77066; 76642; G0279; 77062

== ENCOUNTER → 2023-12-10 | Day surgery (SDC) | payer MEDICARE ==
--- NOTE | 2024-01-07 09:59 | MM ---
Reason for Exam: Post Procedure Mammogram. Last screening mammogram was performed less than 1 month ago. Patient History: Menarche at age 12. First Full-Term at age 30. Late child-bearing (after 30). Left ovary removed at age 34. Right ovary removed at age 34. Hysterectomy at age 34. Postmenopausal. Estrogen for 3 years from age 58 until age 61. 01/03/2016, Benign Core Biopsy on the right side. Paternal aunt had breast cancer. Risk Values: Laura 5 year model risk: 2.4%. NCI Lifetime model risk: 3.0%. Prior Study Comparison: 11/02/2019 Bilateral Diagnostic Mammogram, [facility]. 01/08/2023 Bilateral MG 3D screening mammo w/cad, [facility]. 11/26/2023 Left US breast limited LT, [facility]. 11/26/2023 Bilateral MG 3D diag mammo w/cad NAZ, [facility]. Tissue Density: Left: The breasts are heterogeneously dense, which may obscure small masses. Pathology Description: Location: 3 o'clock. Needle Type: [employer] Cores: 4 Gauge: 12 The procedure of ultrasound guided core biopsy was explained to the patient. Benefits, alternatives, and risks were discussed. An informed consent was then obtained. The patient was placed in supine positioning for imaging and for the procedure. The overlying skin was prepped and draped in usual sterile fashion. Lidocaine buffered with bicarbonate was used as anesthetic into the skin and subcutaneous tissue up to area of concern in the left 3:00 breast. A delvin was made with surgical scalpel. Under ultrasound guidance, a 12-gauge vacuum assisted biopsy gun device was used to obtain 4 core samples. Following this, a biopsy clip was left in lesion. The patient tolerated the procedure well without any immediate complication. The patient was kept in the radiology department for short stay after the procedure and then discharged home in stable condition. Postprocedure mammogram: The patient was transferred to mammography for physician ordered post procedure mammogram for clip placement verification. Impression: Successful, uncomplicated ultrasound guided core biopsy of area of concern in the left 3:00 breast, full pathology results to follow. Pathology Results: Result: Benign, Fibrocystic change. Pathology and radiology were reviewed. Findings are concordant. LEFT BREAST, THREE O'CLOCK, ULTRASOUND GUIDED NEEDLE CORE BIOPSY: Sclerotic fibrosis with compressed ductal structures and fibrocystic change (see note). Rare microcalcification present. Notes It is noted that there is imaging evidence of a left breast 3 o'clock position irregular lobular area which measures 1.8 x 0.9 x 1.4 cm. The findings seen may represent fibrous scar verses a sclerotic fibroadenoma. Clinical correlation with imaging studies is suggested, as indicated. Overall Assessment: Benign Assessment: MG diagnostic mammo LT wo CAD. - Left: Benign, BI-RAD 2. Management: Diagnostic Mammogram of the left breast in 6 months. Diagnostic Breast Ultrasound of the left breast in 6 months. Electronically signed and approved by: Vik Mesa M.D. Radiologis
== END ==
LOC: RADUSWWP 07:35
PROVIDERS: ATTEND Family Medicine
DX: N63.0 Unspecified lump in unspecified breast
CPT/HCPCS: 88305; 77065; 19083; A4648

== ENCOUNTER → 2024-02-18 | Outpatient (CLI) | payer MEDICARE ==
[2024-02-18 10:21] VITALS: BP 136/71; PULSE 84; RESP 16; TEMP 98
--- NOTE | 2024-02-18 10:47 | P.PROGSL ---
Subjective DATE: 02/18/2024 FOLLOW UP VISIT. Patient with obstructive sleep apnea hypopnea syndrome return to sleep center for follow-up visit. Information from previous visit have been reviewed. Patient is using PAP equipment every night for the whole night, getting PAP supplies in time. The patient does not have significant problems with the mask, PAP unit and humidification. [place] sleepiness scale is increased to 16. I checked information from PAP unit. PAP unit pressure 10 cm H2O. Usage is 60% , average 3.5 hours per night. Leak is increased to 54 l/m, patient is using nasal pillow mask, possibly opens her mouth. Apnea Hypopnea Index is 2.7, which is normal. MEDICATIONS have been reviewed, please see below. During physical exam: GENERAL: A pleasant patient without any distress. VITAL SIGNS: Please see below, weight is 191 lbs. HEENT: PERRLA, EOMI.low position of soft palate, Mallapati 3. NECK: Supple. No JVD. LUNGS: Clear to percussion and to auscultation. Good air exchange. No wheezing or rhonchi. HEART: S1, S2 regular. ABDOMEN: Soft and nontender. Obese EXTREMITIES: No clubbing or cyanosis. 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 No focal deficit. Hands tremor. Impressions: 1. Obstructive sleep apnea-hypopnea syndrome. Patient demonstrated borderline compliance with treatment, benefiting from treatment. 2. Obesity, BMI 39.9. 3. History of asthma and COPD. 4. Hypertension. 5. Hypothyroidism. 6. Depression. 7. Familial tremor. 8. Status post hysterectomy. 9. Status post tonsillectomy and adenoidectomy. Plan: 1. Continue using PAP equipment every night for the whole night. 2. Sleep hygiene with regular time in bed for at least 7.5-8 hours 3. PAP unit should stay lower then position of the head. 4. Advised patient to remove all remaining water from humidifier canister daily and make it dry after each usage. Refill canister with fresh distilled water before each usage. 5. Watching and losing weight. 6. Precautions related to driving. No driving if feel any sleepiness. 7. I will maintain prescription for PAP supplies including mask, tube, filters. 8. Follow up visit in 6 months or earlier if patient has any problems. Thank you very much for allowing me to participate in the management of your patient. Royal Velarde MD, PhD, FAASM. Diplomat of [place] [employer], Sleep Medicine Board by [place] [employer] of [facility] [place] Objective - Vital Signs Vital Signs: Vital Signs Temp 98 F 02/18/24 10:20 Pulse 84 02/18/24 10:20 Resp 16 02/18/24 10:20 BP 136/71 02/18/24 10:20 Pulse Ox 94 L 02/18/24 10:20 FiO2 Intake & Output 02/17/24 02/18/24 02/18/24 18:59 06:59 18:59 Weight 86.636 kg Home Medications: Home Medications Medication Instructions Recorded Confirmed Type Cholecalciferol [Vitamin D3 (25 2,000 unit PO DAILY 08/29/14 02/18/24 History Mcg = 1000 Iu)] Furosemide 20 mg PO DAILY 08/29/14 02/18/24 History Montelukast [Singulair] 10 mg PO DAILY 08/29/14 02/18/24 History Nitroglycerin Sl Tabs [Nitrostat] 0.4 mg PO Q5M PRN 08/29/14 02/18/24 History [place]-3 Fatty Acids/Fish Oil [Fish 1 tab PO DAILY 08/29/14 02/18/24 History Oil 1,000 mg Softgel] Sertraline [Zoloft] 100 mg PO DAILY 08/29/14 02/18/24 History Simvastatin 10 mg PO DAILY 08/29/14 02/18/24 History Albuterol Inhaler [Ventolin Hfa 2 puff INHALATION RT-Q4H PRN 03/23/18 02/18/24 History Inhaler] Carboxymethylcellulose Sodium 1 drop BOTH EYES DAILY 03/23/18 02/18/24 History [Refresh Tears] Cranberry Fruit Extract [Cranberry] 500 mg PO DAILY 03/23/18 02/18/24 History Levothyroxine Sodium [Synthroid] 100 mcg PO DAILY 03/23/18 02/18/24 History Albuterol Nebulized [Ventolin 1.25 mg INHALATION TID 07/24/23 02/18/24 History Nebulized (Accuneb)] Aspirin [Adult Low Dose Aspirin EC] 81 mg PO DAILY 11/27/23 02/18/24 History Cyanocobalamin (Vitamin B-12) 2,000 mcg PO DAILY 11/27/23 02/18/24 History [Vitamin B-12] Losartan-Hctz 50-12.5 mg [Hyzaar 1 tab PO DAILY 11/27/23 02/18/24 History 50-12.5] Mometasone/Formoterol [Dulera 200 2 puff INHALATION BID 11/27/23 11/27/23 History Mcg-5 Mcg Inhaler] Potassium Chloride [Potassium 20 meq PO DAILY 11/27/23 02/18/24 History Chloride ER (K-Dur GEQ)]
== END | disposition home or self-care (01) ==
LOC: 3 N SLEEP 10:01
PROVIDERS: ATTEND Internal Medicine
CPT/HCPCS: 99212

== ENCOUNTER → 2024-08-16 | Outpatient (CLI) | payer MEDICARE, OTHER ==
--- NOTE | 2024-08-16 10:26 | MM ---
Reason for Exam: Follow-up at short interval from prior study. Last screening mammogram was performed 9 month(s) ago. Patient History: Menarche at age 12. First Full-Term at age 30. Late child-bearing (after 30). Left ovary removed at age 34. Right ovary removed at age 34. Hysterectomy at age 34. Postmenopausal. Estrogen for 3 years from age 58 until age 61. 12/10/2023, Benign US biopsy breast VAD LT on the left side. 01/03/2016, Benign Core Biopsy on the right side. Paternal aunt had breast cancer. Risk Values: Laura 5 year model risk: 2.9%. NCI Lifetime model risk: 3.2%. Prior Study Comparison: 01/08/2023 Bilateral MG 3D screening mammo w/cad, [facility]. 11/26/2023 Bilateral MG 3D diag mammo w/cad [facility], [facility]. 12/10/2023 Left MG diagnostic mammo LT wo CAD., [facility]. Tissue Density: Left: The breasts are heterogeneously dense, which may obscure small masses. Findings: Analyzed By CAD. Unchanged focal asymmetry posterior upper quadrant left breast corresponding to the patient's recent biopsy site. Subareolar nodularity minimally larger now 2.0 cm corresponding to benign cyst seen on ultrasound 6 months ago. Given slight interval increase in size, additional short interval follow-up can be performed. Otherwise, no significant change. Overall Assessment: Probably benign, BI-RAD 3 Management: Diagnostic Mammogram of both breasts in 6 months. Total one-year follow-up left breast and annual exam of the right breast. Results were given to the patient verbally at the time of exam. Patient should continue monthly self-breast exams. A clinical breast exam by your physician is recommended on an annual basis. This exam should not preclude additional follow-up of suspicious palpable abnormalities. Note on Laura scores and lifetime risk: 1. A Laura score greater than 3% is considered moderate risk. If this is the case, consider specialist referral to assess eligibility for a risk reducing agent. 2. If overall lifetime risk for the development of breast cancer is 20% or higher, the patient may qualify for future screening with alternating mammogram and breast MRI. [facility], , 08/16/2024 10:23 AM. Electronically signed and approved by: Marcia Carney M.D. Radiologist
== END | disposition home or self-care (01) ==
LOC: RADMAMWWP 09:56
PROVIDERS: ATTEND Family Medicine
DX: R92.8 Other abnormal and inconclusive findings on diagnostic imaging of breast (principal); R92.322 Mammographic fibroglandular density, left breast; Z78.0 Asymptomatic menopausal state; Z80.3 Family history of malignant neoplasm of breast
CPT/HCPCS: 77061; 77065